=== PATIENT | female | born 1940 | race Caucasian/White ===

== ENCOUNTER 2017-02-27 05:21 | Inpatient (IN) | payer OTHER, MEDICARE ==
[2017-02-19 14:37] VITALS: BMI 39.0
--- NOTE | 2017-02-19 15:26 | PAT Medication Instructions ---
Service Date Feb 19, 2017. Current Home Medication List Acetaminophen (Acetaminophen ER), 1 TAB PO Q4 Alprazolam (Xanax *), 0.25 MG PO HS PRN Amiodarone Hcl (Cordarone), 200 MG PO DAILY Amlodipine (Norvasc), 10 MG PO QAM Aspirin Enteric Coated (Ecotrin Or Generic *), 81 MG PO QAM Cholecalciferol (Vitamin D), 4 TAB PO QPM Citalopram (Celexa *), 40 MG PO QAM Furosemide (Lasix), 40 MG PO BID Insulin Glargine (Toujeo Solostar), 15 SQ HS Isosorbide Mononitrate Ext Rel (Imdur Ext Rel), 120 MG PO QAM Metoprolol Succinate (Toprol Xl), 50 MG PO QAM Potassium Chloride (Potassium Chloride Er), 1 TAB PO BID Simvastatin (Zocor), 10 MG PO QPM Warfarin Sod (Coumadin), 1 TAB PO HS Medication Instructions For Your Scheduled Surgery - Advised by surgeon to hold: Aspirin Enteric Coated (Ecotrin Or Generic *), 81 MG PO QAM - Instructions per Coumadin clinic: Warfarin Sod (Coumadin), 1 TAB PO HS *To bridge with Lovenox* - Hold the following medications the morning of surgery: Potassium Chloride (Potassium Chloride Er), 1 TAB PO BID Furosemide (Lasix), 40 MG PO BID - Take the following medications the morning of surgery with a sip of water: Acetaminophen (Acetaminophen ER), 1 TAB PO Q4h PRN Amiodarone Hcl (Cordarone), 200 MG PO DAILY Amlodipine (Norvasc), 10 MG PO QAM Citalopram (Celexa *), 40 MG PO QAM Isosorbide Mononitrate Ext Rel (Imdur Ext Rel), 120 MG PO QAM Metoprolol Succinate (Toprol Xl), 50 MG PO QAM - Take the following medications as scheduled the night before surgery: Acetaminophen (Acetaminophen ER), 1 TAB PO Q4h PRN Potassium Chloride (Potassium Chloride Er), 1 TAB PO BID Simvastatin (Zocor), 10 MG PO QPM Alprazolam (Xanax *), 0.25 MG PO HS PRN Insulin Glargine (Toujeo Solostar), 15 SQ HS Cholecalciferol (Vitamin D), 4 TAB PO QPM Furosemide (Lasix), 40 MG PO BID If you have any questions please call us at [phone] or [phone] or [phone]
[2017-02-19 15:55] LABS: BASO % 0.7 %; BASO ABS # 0.05 K/uL (0-0.2); COMPLETE YES; EOS % 2.4 %; HEMATOCRIT 37.1 % (37-47); IG% 0.3 %; LYMPH % 10.1 %; LYMPH ABS # 0.72 K/uL (1.2-3.4); MEAN CELL VOLUME 91.6 fL (80-100); MEAN CORPUSCULAR HEMOGLOBIN 29.1 pg (25-34); MEAN CORPUSCULAR HGB CONC 31.8 g/dl (32-36); MEAN PLATELET VOLUME 10.3 fL (7.4-10.4); MONO % 10.5 %; PLATELET COUNT 191 K/uL (130-400); RED BLOOD COUNT 4.05 M/uL (4.2-5.4); WHITE BLOOD COUNT 7.16 K/uL (4.8-10.8)
[2017-02-19 16:06] LABS: URINE APPEARANCE CLOUDY (CLEAR); URINE BILIRUBIN NEG (NEG); URINE COLOR YELLOW; URINE NITRITE POS (NEG); URINE SPECIFIC GRAVITY 1.015 (1.000-1.030); UROBILINOGEN NEG (NEG)
[2017-02-19 16:09] LABS: MANUAL MICROSCOPIC REQUIRED? NO; REVIEW REQ? NO
[2017-02-19 16:16] LABS: BUN/CREATININE RATIO 14.2 (10-20); CALCIUM 8.6 mg/dl (8.5-10.1); POTASSIUM 4.6 mmol/L (3.5-5.1)
--- NOTE | 2017-02-21 10:43 | HISTORY & PHYSICAL EXAMINATION ---
DATE OF ADMISSION: 02/27/2017 CHIEF COMPLAINT: Back pain and bilateral leg pain and neurogenic claudication. HISTORY OF PRESENT ILLNESS: The patient is a 77-year-old female with a longstanding history of progressive back and leg pain, associated numbness, weakness and difficulty ambulating. 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 MRI shows severe spinal stenosis at L4-L5 and L5-S1 with facet degeneration and neural compression. She has failed to respond to conservative treatment and due to her marked discomfort she rates as 10/10 and limited functional status desires surgery. She has a complex cardiac history including history of MD, mitral valve regurgitation, atrial fibrillation. She was seen by cardiology for preoperative evaluation. Cardiology evaluation revealed a previous stenting in 2004 and 2006, chronic diastolic CHF. Preoperative transthoracic echocardiogram revealed ejection fraction of 57%, stress test revealed prior myocardial infarction. She was deemed to be stable from a cardiac standpoint. considered moderate cardiac risk. She was cleared to hold Coumadin preoperatively with bridging Lovenox. PAST MEDICAL HISTORY: Lymphedema, vitamin D deficiency, adenomatous polyps, adrenal nodule, anemia of chronic disease, kidney disease chronic stage IV, pulmonary hypertension, hypertension, history of TIA, osteopenia, dyslipidemia, type 2 diabetes, osteoarthritis, peripheral neuropathy, depression. PAST SURGICAL HISTORY: Total knee arthroplasty, colonoscopy, lumbar fusion, cholecystectomy, partial colectomy, hysterectomy. FAMILY HISTORY: Heart disease, cancer, diabetes and hypertension. SOCIAL HISTORY: The patient is a smoker, 14-mbxg-zana history. No alcohol use is reported. ALLERGIES: FLEXERIL AND TALWIN. MEDICATIONS: Coumadin which is to be held, metoprolol, Xanax, Lasix, potassium, simvastatin, insulin, citalopram, amiodarone, amlodipine, albuterol, fluticasone, aspirin, vitamin D, Vicodin. REVIEW OF SYSTEMS: The patient denies current or active chest pain. She has chronic shortness of breath. She has chronic overflow urinary incontinence. She denies fevers, chills or night sweats. PHYSICAL EXAMINATION: GENERAL: The patient is a pleasant elderly female who is obviously uncomfortable. She answers questions appropriately, has normal affect. She is alert and oriented x3. She stands slowly and ambulates with a stooped posture and compensated gait without martha ataxia and lumbar prominence. Inspection of the lumbar spine revealed midline scar, no martha tenderness or obvious scoliosis. CARDIOVASCULAR EXAMINATION: Reveals a regular rate at the time of auscultation of what appeared to be a regular rhythm. LUNGS: Clear to auscultation bilaterally. She had well preserved cervical range of motion, no prominent cervical lymphadenopathy. EXTREMITIES: Evaluation of the extremities revealed mild bilateral ankle edema, nonpitting, difficult to palpate distal pulses due to this. She had good cap refill. She had negative straight leg raise bilaterally. Nontender hip range of motion. She had 5/5 strength in motor function in dorsiflexion and plantarflexion bilaterally with absent DTRs at patellar. No clonus at the ankle. She reported intact sensation to light touch that was not normal, but diminished bilaterally with a stocking like fashion. IMAGING: Was reviewed as above. ASSESSMENT AND PLAN: The patient is an elderly female with multiple deformities who is of moderate cardiovascular risk for surgery and high medical risk. Despite these considerations she desires surgery due to her severe back and leg pain, ongoing neural compression and poor quality of life. She has achieved adequate pain control with oral medication. She understands the risk and desires to proceed. To address her symptoms, I recommend an L4-S1 decompression and fusion procedure with possible extension of cephalad hardware with removal of the cephalad hardware at L4-S1. She is agreeable to this. TEO
[~2017-02-27] VITALS: Ht 165.1 cm; Wt 106.4 kg
[2017-02-27] VITALS (11 sets, daily range): BP systolic 122–145; BP diastolic 61–77; PULSE 52–60; TEMP 36.4–36.6; O2SAT 91–98; Ht 165.1 cm; Wt 106.4 kg
[~2017-02-27 05:21] MED LIST: ACET650T9 PO; AMIO200T4 PO; AMLO-114 PO; ASPEC81 PO; CHOL100010 PO; CLX20 PO; CMD125 PO; FRS/40 PO; INSU1.2I SQ; ISOS60TA25 PO; METO-452 PO; POTA-74 PO; SIMV10TA2 PO; XNX25 PO
[2017-02-27] MEDS ORDERED: lovenox SQ (05:56)
[2017-02-27] MEDS ORDERED: CEFAZOLIN 2000 MG/60 ML D5W IV SCH (06:00)
[2017-02-27] MEDS ORDERED: SODIUM CHLORIDE 0.9% 1000ML IV SCH (06:00)
[2017-02-27] MEDS ORDERED: CeleBREX 200 MG CAP PO SCH (06:00)
[2017-02-27] MEDS ORDERED: PREGABALIN 75 MG CAP PO SCH (06:00)
[2017-02-27 06:08] LABS: INR 1.1 (0.9-1.1); PARTIAL THROMBOPLASTIN RATIO 1.1; PROTHROMBIN TIME (PATIENT) 11.6 SECONDS (9.0-12.0)
[2017-02-27] MEDS ORDERED: MIDAZOLAM HCL 1 MG/ML 2ML VIAL ONE (06:32)
[2017-02-27] MEDS ORDERED: FENTANYL CITRATE INJ 50 MCG/1 ML 2 ML VIAL ONE ×2 (06:32→07:59)
[2017-02-27] MEDS ORDERED: HEPARIN SOD (PORCINE) 1000 UNIT/ML 10 ML VIAL ONE (07:00)
[2017-02-27] MEDS ORDERED: BUPIVACAINE/EPINEPHRINE 0.5% MPF 1:200,000 30 ML VIAL ONE (07:00)
[2017-02-27] MEDS ORDERED: THROMBIN FOR SOLN 20000 UNIT KIT ONE (07:00)
[2017-02-27] MEDS ORDERED: THROMBIN 5000 UNITS KIT ONE (07:00)
[2017-02-27] MEDS ORDERED: BACITRACIN 50000 UNIT VIAL ONE (07:01)
--- NOTE | 2017-02-27 07:22 | History & Physical Bridge Note ---
H&P Re-Evaluation Bridge Note: I have examined the patient, reviewed the History & Physical and in the interval since the performance of the History & Physical I have noted the following changes of clinical significance: No changes noted
[2017-02-27] MEDS ORDERED: HYDROmorphone INJ 1 MG/ML SYR IV PRN ×2 (07:45→09:30)
[2017-02-27] MEDS ORDERED: EpHEDrine SULFATE INJ 50 MG/ML AMP IV PRN (07:45)
[2017-02-27] MEDS ORDERED: ONDANSETRON INJ 2 MG/ML 2 ML VIAL IV PRN ×2 (07:45→09:30)
[2017-02-27] MEDS ORDERED: ATROPINE SULFATE 0.1 MG/ML 5ML SYR IV PRN (07:45)
[2017-02-27] MEDS ORDERED: FENTANYL CITRATE INJ 50 MCG/1 ML 2 ML VIAL IV PRN (07:45)
[2017-02-27] MEDS ORDERED: HYDROmorphone INJ 2 MG/ML SYR/VIAL ONE (07:59)
--- NOTE | 2017-02-27 09:20 | [facility] Post Operative Brief Note ---
Immediate Operative Summary Operative Date Feb 27, 2017. Pre-Operative Diagnosis Back Pain, bilateral leg pain and Neurogenic Claudication Post-Operative Diagnosis Back Pain, bilateral leg pain and Neurogenic Claudication Procedure(s) Performed L4-S1 decomp/PSF, HWR L4 bilateral Surgeon Dr. Fernandez Assembler Flexible Leads Surgeon(s) Dale Stevenson Estimated Blood Loss 200cc Findings dict Specimens 0
[2017-02-27] MEDS ORDERED: FLOSEAL HEMOSTATIC MATRIX 10ML TOP ONE (09:22)
[2017-02-27] MEDS ORDERED: PROMETHAZINE HCL INJ 12.5 MG in SODIUM CHLORIDE 0.9% 50ML 50 ML IV PRN (09:30)
[2017-02-27] MEDS ORDERED: LORAZEPAM 0.5 MG TAB PO PRN (09:30)
[2017-02-27] MEDS ORDERED: NALOXONE HCL 0.4 MG/1 ML VIAL/CARP IV PRN (09:30)
[2017-02-27] MEDS ORDERED: SOD PHOSPHATE/SOD BIPHOSPHATE ENEMA 132 ML BTL PR PRN (09:30)
[2017-02-27] MEDS ORDERED: FAMOTIDINE 20 MG TAB PO PRN (09:30)
[2017-02-27] MEDS ORDERED: BISACODYL 10 MG SUPP PR PRN (09:30)
[2017-02-27] MEDS ORDERED: MAGNESIUM HYDROXIDE SUSP 30 ML UDC PO PRN (09:30)
[2017-02-27] MEDS ORDERED: LORAZEPAM INJ 0.5 MG in SYRINGE 0.75 ML IV PRN (09:30)
[2017-02-27] MEDS ORDERED: METOCLOPRAMIDE HCL INJ 5 MG/ML 2 ML VIAL IV PRN (09:30)
[2017-02-27] MEDS ORDERED: ALUMINUM/MAGNESIUM SUSP 30 ML UDC PO PRN (09:30)
--- NOTE | 2017-02-27 09:34 | DIAGNOSTIC IMAGING REPORT ---
Lumbar spine LUMBAR SPINE 2 OR 3 VIEW CLINICAL HISTORY: L2-L4 REMOVAL/ L4-S1 DECOMPRESSION/FUSION/INT ERT BODY TECHNIQUE: Image intensifier COMPARISON STUDY: None FINDINGS: Images demonstrate evidence for a low lumbar sacral laminectomy and fusion. 2 body alignment appears anatomic. IMPRESSION: Lumbar laminectomy and fusion Electronically signed by: Roberto Malloy M.D. 02/27/2017 9:33 AM Dictated Date/Time: 02/27/2017 9:30 AM
--- NOTE | 2017-02-27 10:32 | OPERATIVE REPORT ---
DATE OF OPERATION: 02/27/2017 PREOPERATIVE DIAGNOSES: 1. Previous L2-4 instrumented fusion. 2. Spinal stenosis L4-5 and L5-S1. 3. Severe lower extremity radiculopathy. SURGEON: Dr. Garcias. CARBON FURNACE OPERATOR: Dale Malik PA-C. Please note, he participated in all portions of the procedure and was critical for performance of the procedure, participated in positioning, prepping, draping, retraction and wound closure. ANESTHESIA: General endotracheal anesthesia. COMPLICATIONS: None. ESTIMATED BLOOD LOSS: 200 mL PROCEDURE: After identification of patient and operative level, she was brought to the OR where she underwent induction of general anesthesia. She was then positioned prone on Stan OR table with all bony prominences well padded. Care was taken to avoid pressure on the periorbital area. Lumbosacral area was sterilely prepped and draped in usual fashion. Antibiotics were administered. Time-out was performed. Level was confirmed. Skin incision was made from spinous process of L4 to the sacrum. Posterior exposure was accomplished at the tips of the transverse processes and Gelpi retractors were placed. Level was confirmed with identification of the hardware and fluoroscopy. I exposed the screws of L4 and then did a midline decompression with L4 and L5 laminectomies. I removed the medial facets with an osteotome and completed decompression with Kerrisons with wide foraminotomies as necessary. After completion of decompression, I palpated the nerve roots were decompressed bilaterally with [place] at L4, L5 and S1. I then applied FloSeal for hemostasis. Pedicle screws were placed bilaterally at L5 and S1 with K2M Palmer pedicle screws and position was checked with fluoroscopy. I then lowered the Aravind frame to restore lordosis and removed the L4 screws and then placed ramsey-to-ramsey connectors from L4 of the medicrea ramsey to the L4 K2M ramsey. I then inserted the ramsey with endcaps in to the screws of L5 and S1 and final tightened all endcaps as well as the connecters at L4. This was done bilaterally. I then decorticated the transverse process facets at L4-5 and L5-S1 with a high speed martin. I irrigated with bacitracin solution. Bone marrow aspirate taken from the right iliac crest and concentrated with stem cell concentration system and applied to bone graft paper bags sewing machine operator. I mixed this with local bone, was morselized and Infuse BMP on a collagen sponge, then packed the lateral gutters with a bone graft mixture as described above. I then confirmed hemostasis and closed in layered fashion over MITCHELL drain. All sponge and needle counts were correct at the end of the case. I attest to the content of the Intraoperative Record and any orders documented therein. Any exceptions are noted below. TEO
[2017-02-27] MEDS ORDERED: NEOSTIGMINE METHYLSULFATE 1 MG/ML 10ML VIAL ONE (10:35)
[2017-02-27] MEDS ORDERED: ROCURONIUM BROMIDE 10 MG/ML 5 ML VIAL ONE (10:35)
[2017-02-27] MEDS ORDERED: EpHEDrine SULFATE 50MG/5ML SYR ONE (10:35)
[2017-02-27] MEDS ORDERED: GLYCOPYRROLATE INJ 0.2 MG/ML VIAL ONE (10:35)
[2017-02-27] MEDS ORDERED: PROPOFOL IV EMULSION 10 MG/ML 20 ML VIAL IV ONE (10:35)
[2017-02-27] MEDS ORDERED: ONDANSETRON INJ 2 MG/ML 2 ML VIAL ONE (10:35)
[2017-02-27] MEDS ORDERED: LIDOCAINE HCL 2% 2 ML VIAL (20MG/ML) ONE (10:35)
[2017-02-27] MEDS ORDERED: DEXAMETHASONE SOD INJ 4 MG/ML VIAL ONE (10:35)
--- NOTE | 2017-02-27 10:47 | Anesthesiology Progress Note ---
Anesthesia Post Op Note Date & Time Feb 27, 2017 at 10:47 Vital Signs Pain Intensity: 0 Vital Signs Past 12 Hours Date Time Temp Pulse Resp B/P (MAP) Pulse Ox O2 Delivery O2 Flow Rate FiO2 02/27/17 10:39 53 14 02/27/17 10:39 54 14 93 02/27/17 10:36 143/62 02/27/17 10:34 54 12 02/27/17 10:34 54 12 90 02/27/17 10:31 144/55 02/27/17 10:30 36.3 68 93 161/58 93 Nasal Cannula 4 68 02/27/17 10:29 56 15 02/27/17 10:29 56 15 93 02/27/17 10:26 161/58 02/27/17 10:24 56 16 02/27/17 10:24 56 16 92 02/27/17 10:21 131/54 02/27/17 10:19 58 23 93 02/27/17 10:19 57 23 02/27/17 10:16 157/59 02/27/17 10:14 58 19 95 02/27/17 10:14 58 19 02/27/17 10:11 148/59 02/27/17 10:09 61 13 93 02/27/17 10:09 60 13 02/27/17 10:06 140/59 02/27/17 10:04 62 17 02/27/17 10:04 62 17 92 02/27/17 10:01 157/65 02/27/17 09:59 63 20 02/27/17 09:59 63 20 94 02/27/17 09:56 159/61 02/27/17 09:54 64 16 95 02/27/17 09:54 65 16 02/27/17 09:51 154/68 02/27/17 09:49 65 15 94 02/27/17 09:49 65 15 02/27/17 09:46 155/69 02/27/17 09:44 64 18 93 02/27/17 09:44 64 18 02/27/17 09:41 145/80 02/27/17 09:39 63 23 93 02/27/17 09:39 63 23 02/27/17 09:36 143/60 02/27/17 09:35 138/57 02/27/17 09:34 63 22 90 02/27/17 09:34 36.2 63 16 138/57 94 Mask 10 02/27/17 09:34 63 22 02/27/17 05:57 36.6 60 20 145/62 94 Room Air Notes Mental Status: alert / awake / arousable, participated in evaluation Pt Amnestic to Procedure: Yes Nausea / Vomiting: adequately controlled Pain: adequately controlled Airway Patency, RR, SpO2: stable & adequate BP & HR: stable & adequate Hydration State: stable & adequate Anesthetic Complications: no major complications apparent
[2017-02-27] MEDS ORDERED: GLUCOSE 10 TABS/TUBE PO PRN (11:30)
[2017-02-27] MEDS ORDERED: DEXTROSE 50% 50 ML SYR IV PRN (11:30)
[2017-02-27] MEDS ORDERED: GLUCAGON FOR INJ 1 MG VIAL SQ PRN (11:30)
[2017-02-27] MEDS ORDERED: GLUCOSE 40% GEL 15 GM TUBE PO PRN (11:30)
[2017-02-27] MEDS: SODIUM CHLORIDE 0.9% 1000ML 1,000 ML IV SCH (11:32)
[2017-02-27] MEDS ORDERED: CMD25 PO (12:05)
[2017-02-27] MEDS ORDERED: ALBUTEROL HFA 8 GM INHALER INH PRN (12:30)
[2017-02-27] MEDS ORDERED: ALPRAZOLAM 0.25 MG TAB PO PRN (12:30)
[2017-02-27] MEDS ORDERED: ALBUTEROL 0.5% NEB SOLN 2.5 MG/0.5 ML VIAL INH PRN (12:30)
--- NOTE | 2017-02-27 12:32 | Medical Consult ---
Consultation Date of Consultation: Feb 27, 2017. Attending Physician: Josias Garcias M.D. Reason for Consultation: postop medical management History of Present Illness Patient seen and examined after undergoing L4-S1 decompression/ fusion today by Dr. Garcias. Patient reports feeling tired but otherwise no complaints. No postop pain yet. Has not eaten yet but feels hungry. Last BM was yesterday. Hit head on cabinet yesterday while doing dishes so has bruising on forehead. Recently treated for UTI with Bactrim changed to Cipro by nephro with improvement of urinary symptoms. Denies dizziness, headache, chest pain, palpitations, SOB, N/V, numbness/ tingling, weakness. No hx of VTE. Past Medical/Surgical History Medical Problems: (1) Anemia in chronic renal disease Status: Chronic (2) CAD (coronary artery disease) Status: Chronic (3) CKD (chronic kidney disease), stage IV Status: Chronic (4) Colon cancer Permanent Comment: s/p resection and chemo Status: Chronic (5) Depression with anxiety Status: Chronic (6) Diabetic polyneuropathy Status: Chronic (7) Diastolic CHF, chronic Status: Chronic (8) DM type 2 (diabetes mellitus, type 2) Status: Chronic (9) Dyslipidemia Status: Chronic (10) HTN (hypertension) Status: Chronic (11) Lymphedema Status: Chronic (12) Mitral regurgitation Status: Chronic (13) Obesity (BMI 30-39.9) Status: Chronic (14) ROMMEL (obstructive sleep apnea) Permanent Comment: on nocturnal O2 Status: Chronic (15) Osteopenia Status: Chronic (16) PAF (paroxysmal atrial fibrillation) Permanent Comment: on Coumadin Status: Chronic (17) Pulmonary HTN Status: Chronic (18) TIA (transient ischemic attack) Status: Chronic (19) Vitamin D deficiency Status: Chronic Surgical Problems: (1) History of hysterectomy Status: Chronic (2) History of lumbar surgery Status: Chronic (3) S/P coronary artery stent placement Status: Chronic (4) S/P partial colectomy Status: Chronic Family History Diabetes mellitus MOTHER BROTHER FH: CAD (coronary artery disease) FATHER MOTHER Social History Smoking Status: Current Every Day Smoker (1 ppd. counselled about cessation.) Alcohol Use: none Housing Status: lives with family (son lives with her but not involved with her care) Allergies Coded Allergies: Vancomycin (Verified Allergy, Intermediate, RASH/HIVES/ITCHINESS ( [id number] ADMISSION) -COMMENT-, 02/27/17) PT RECEIVED 413ML (~1900MG) OF VANCO 2300MG/500ML. INFUSION WAS STOPPED INITIALLY FOR ITCHINESS AND PT RECEIVED 50MG PO BENADRYL X 1 WITH RELIEF. INFUSION WAS RE-STARTED AT 200ML/HR AND PT COMPLAINED OF ITCHINESS. VERBAL ORDER FROM DR SHELLEY TO D/C VANC AND BENADRYL 25MG PO Q4 HR ORDERED. MAY CONSIDER USING VANCO IN FUTURE IF NECESSARY, BUT WOULD RECOMMEND PRE-TREATING WITH ANTIHISTAMINE/CORTICOSTEROID, MAX DILUTING VANCO, AND STARTING RATE AT 0.5ML/MIN (30ML/HR) AND TITRATING TO MAX TOLERABLE RATE. Pentazocine (Verified Allergy, Unknown, 02/27/17) Sulfa Antibiotics (Verified Adverse Reaction, Unknown, NERVOUSNESS, ) Home Medications Active Reported Coumadin (Warfarin Sod) 2.5 Mg Tab 1.25 Mg PO DAILY [lovenox] SQ BID Cordarone (Amiodarone Hcl) 200 Mg Tab 200 Mg PO DAILY Acetaminophen ER (Acetaminophen) 650 Mg Tab 1 Tab PO Q4 Vitamin D (Cholecalciferol) 1,000 Unit Tab 8,000 Units PO DAILY Potassium Chloride Er (Potassium Chloride) 10 Meq Tab 2 Tab PO DAILY 90 Days Toprol Xl (Metoprolol Succinate) 50 Mg Tab 50 Mg PO QAM Toujeo Solostar (Insulin Glargine) 300 Unit/Ml Inj 15 SQ HS Ecotrin Or Generic * (Aspirin) 81 Mg Ectab 81 Mg PO QAM pt reports received instructions for pre op - stopping on february 21 (this will be day of last dose) Celexa * (Citalopram Hydrobromide) 20 Mg Tab 40 Mg PO QAM Zocor (Simvastatin) 10 Mg Tab 10 Mg PO DAILY Imdur Ext Rel (Isosorbide Mononitrate) 60 Mg Ertab 120 Mg PO QAM Lasix (Furosemide) 40 Mg Tab 40 Mg PO BID Xanax * (Alprazolam) 0.25 Mg Tab 0.25 Mg PO HS PRN Norvasc (Amlodipine Besylate) 10 Mg Tab 10 Mg PO QAM Current Inpatient Medications Current Inpatient Medications Medications (Trade) Dose Ordered Sig/Sanna Route Start Time Stop Time Status Last Admin Dose Admin Cefazolin Sodium 60 ml @ 100 mls/hr PREOP IV 02/27/17 06:00 02/27/17 18:00 02/27/17 07:29 100 MLS/HR Sodium Chloride 1,000 ml @ 15 mls/hr Q24H IV 02/27/17 06:00 02/27/17 18:00 02/27/17 06:24 15 MLS/HR Celecoxib (CeleBREX CAP) 200 mg PREOP PO 02/27/17 06:00 02/27/17 18:00 02/27/17 06:19 200 MG Pregabalin (Lyrica Cap) 75 mg PREOP PO 02/27/17 06:00 02/27/17 18:00 02/27/17 06:19 75 MG Fentanyl Citrate (Fentanyl Inj) 25 mcg Q5M PRN IV 02/27/17 07:45 02/27/17 12:45 Hydromorphone HCl (Dilaudid Inj) 0.25 mg Q5M PRN IV 02/27/17 07:45 02/27/17 12:45 Ondansetron HCl (Zofran Inj) 4 mg ONE PRN IV 02/27/17 07:45 02/27/17 12:45 Ephedrine Sulfate (EpHEDrine SULFATE INJ) 5 mg Q5M PRN IV 02/27/17 07:45 02/27/17 12:45 Atropine Sulfate (Atropine Sulfate 0.1MG/Ml Inj) 0.5 mg Q1M PRN IV 02/27/17 07:45 02/27/17 12:45 Amiodarone HCl (Cordarone Tab) 200 mg DAILY PO 02/28/17 09:00 03/30/17 08:59 Amlodipine Besylate (Norvasc Tab) 10 mg QAM PO 02/28/17 09:00 03/30/17 08:59 Aspirin (Ecotrin Tab) 81 mg QAM PO 02/28/17 09:00 03/30/17 08:59 Citalopram Hydrobromide (celeXA TAB) 40 mg QAM PO 02/28/17 09:00 03/30/17 08:59 Isosorbide Mononitrate (Imdur Ext Rel Tab) 120 mg QAM PO 02/28/17 09:00 03/30/17 08:59 Metoprolol Succinate (Toprol Xl Tab) 50 mg QAM PO 02/28/17 09:00 03/30/17 08:59 Simvastatin (Zocor Tab) 10 mg QPM PO 02/27/17 21:00 03/29/17 20:59 Promethazine HCl 12.5 mg/Sodium Chloride 50.5 ml @ 202 mls/hr Q6H PRN IV 02/27/17 09:30 03/29/17 09:29 Ondansetron HCl (Zofran Inj) 4 mg Q6H PRN IV 02/27/17 09:30 03/29/17 09:29 Metoclopramide HCl (Reglan Inj) 10 mg Q6H PRN IV 02/27/17 09:30 03/29/17 09:29 Lorazepam (Ativan Tab) 0.5 mg Q8H PRN PO 02/27/17 09:30 03/29/17 09:29 Lorazepam 0.5 mg/ Syringe 1 ml @ 1 mls/min Q8H PRN IV 02/27/17 09:30 03/29/17 09:29 Sodium Chloride 1,000 ml @ 50 mls/hr Q20H IV 02/27/17 09:20 03/30/17 07:00 02/27/17 11:32 75 MLS/HR Polyethylene (Miralax Powder Packet) 17 gm Q6 PO 03/01/17 06:00 03/31/17 05:59 Bisacodyl (Dulcolax Supp) 10 mg DAILY PRN DC 02/27/17 09:30 03/29/17 09:29 Magnesium Hydroxide (Milk Of Magnesia Susp) 30 ml DAILY PRN PO 02/27/17 09:30 03/29/17 09:29 Hydromorphone HCl (Dilaudid Inj) 0.5-1mg prn moder... Q3H PRN IV 02/27/17 09:30 03/13/17 09:29 Oxycodone HCl (Roxicodone Immediate Rel Tab) 5-10mg prn moderate to sev... Q4H PRN PO 02/27/17 11:27 03/13/17 11:26 Cefazolin Sodium 2000 mg/Dextrose 60 ml @ 100 mls/hr Q8H IV 02/27/17 16:00 02/28/17 00:35 Acetaminophen (Tylenol Tab) 1,000 mg Q8H PRN PO 02/27/17 09:30 03/29/17 09:29 Naloxone HCl (Narcan Inj) 0.1 mg Q5M PRN IV 02/27/17 09:30 03/29/17 09:29 Senna/Docusate Sodium (Senokot S Tab) 2 tab HS PO 02/27/17 21:00 03/29/17 20:59 Sodium Biphosphate/ Sodium Phosphate (Fleet Enema) 132 ml ONE PRN DC 02/27/17 09:30 03/29/17 09:29 Al Hydroxide/Mg Hydroxide (Maalox Susp) 30 ml Q6H PRN PO 02/27/17 09:30 03/29/17 09:29 Famotidine (Pepcid Tab) 20 mg Q12 PRN PO 02/27/17 09:30 03/29/17 09:29 Insulin Aspart (novoLOG ASPART) SLIDING SCALE If C... ACHS SC 02/27/17 12:00 03/29/17 11:59 Glucose (Glucose 40% Gel) 15-30 GRAMS 15 GRAMS... UD PRN PO 02/27/17 11:30 03/29/17 11:29 Glucose (Glucose Chew Tab) 4-8 Tablets 4 Tabl... UD PRN PO 02/27/17 11:30 03/29/17 11:29 Dextrose (Dextrose 50% 50ML Syringe) 25-50ML OF 50% DW IV FOR... UD PRN IV 02/27/17 11:30 03/29/17 11:29 Glucagon (Glucagon Inj) 1 mg UD PRN SQ 02/27/17 11:30 03/29/17 11:29 Insulin Glargine (Lantus Solostar Pen) 15 unit HS SC 02/27/17 21:00 03/29/17 20:59 UNV Furosemide (Lasix Tab) 40 mg BID PO 02/28/17 09:00 03/29/17 16:59 UNV Review of Systems Ten systems reviewed and negative except as noted in HPI. Physical Exam Date Time Temp Pulse Resp B/P (MAP) Pulse Ox O2 Delivery O2 Flow Rate FiO2 02/27/17 11:26 93 Nasal Cannula 4.0 02/27/17 11:25 36.4 54 16 135/70 (91) 93 Nasal Cannula 4.0 02/27/17 11:20 54 18 138/65 (89) 92 02/27/17 11:13 93 Nasal Cannula 4.0 02/27/17 10:39 53 14 02/27/17 10:39 54 14 93 02/27/17 10:36 143/62 02/27/17 10:34 54 12 02/27/17 10:34 54 12 90 02/27/17 10:31 144/55 02/27/17 10:30 36.3 68 93 161/58 93 Nasal Cannula 4 68 02/27/17 10:29 56 15 02/27/17 10:29 56 15 93 02/27/17 10:26 161/58 02/27/17 10:24 56 16 02/27/17 10:24 56 16 92 02/27/17 10:21 131/54 02/27/17 10:19 58 23 93 02/27/17 10:19 57 23 02/27/17 10:16 157/59 02/27/17 10:14 58 19 95 02/27/17 10:14 58 19 02/27/17 10:11 148/59 02/27/17 10:09 61 13 93 02/27/17 10:09 60 13 02/27/17 10:06 140/59 02/27/17 10:04 62 17 02/27/17 10:04 62 17 92 02/27/17 10:01 157/65 02/27/17 09:59 63 20 02/27/17 09:59 63 20 94 02/27/17 09:56 159/61 02/27/17 09:54 64 16 95 02/27/17 09:54 65 16 02/27/17 09:51 154/68 02/27/17 09:49 65 15 94 02/27/17 09:49 65 15 02/27/17 09:46 155/69 02/27/17 09:44 64 18 93 02/27/17 09:44 64 18 02/27/17 09:41 145/80 02/27/17 09:39 63 23 93 02/27/17 09:39 63 23 02/27/17 09:36 143/60 02/27/17 09:35 138/57 02/27/17 09:34 63 22 90 02/27/17 09:34 36.2 63 16 138/57 94 Mask 10 02/27/17 09:34 63 22 02/27/17 05:57 36.6 60 20 145/62 94 Room Air General Appearance: no apparent distress, + obese, + pertinent finding ( pleasant alert elderly female, lying in bed no distress, sister and 2 nieces at bedside) Head: normocephalic, + pertinent finding (ecchymosis on forehead) Eyes: normal inspection, PERRL, sclerae normal ENT: pharynx normal, + pertinent finding (mildly hard of hearing) Neck: supple Respiratory/Chest: lungs clear, normal breath sounds, no respiratory distress, no accessory muscle use Cardiovascular: regular rate, rhythm, + systolic murmur Abdomen/GI: normal bowel sounds, non tender, soft Back: + pertinent finding (s/p lumbar surgery. dressing in place. drain in place with sanguinous drainage. ) Extremities/Musculoskelatal: no calf tenderness, + pertinent finding (SCD's in place) Neurologic/Psych: alert, normal mood/affect, oriented x 3, + pertinent finding (sensation to light touch grossly intact bilateral feet. ankle flexion/ extension grossly intact bilaterally) Skin: warm/dry, + pertinent finding (ecchymosis on forehead) Laboratory Results Last 24 Hours Test 02/27/17 05:43 02/27/17 05:44 02/27/17 09:36 Bedside Glucose 111 mg/dl 138 mg/dl Prothrombin Time 11.6 SECONDS Prothromb Time International Ratio 1.1 Activated Partial Thromboplast Time 27.5 SECONDS Partial Thromboplastin Ratio 1.1 Assessment & Plan S/P L4-S1 DECOMPRESSION/ FUSION POD #[address] Garcias Pain control, activity, wound care per ortho Monitor daily H/H for sign of acute blood loss anemia Incentive spirometry PT/ OT PAROXYSMAL AFIB Currently in regular sounding rhythm, rate controlled Continue amiodarone and metoprolol Coumadin held for surgery- resume when acceptable by ortho CHRONIC DIASTOLIC CHF/ LYMPHEDEMA Currently euvolemic On Lasix 40 mg BID at home IVF's decreased to 50 mL/hour and d/c in am Resume Lasix in AM DM TYPE 2 Continue glargine 15 units HS Novolog sliding scale coverage Monitor BSG AC HS CKD STAGE IV Creat is 2.0, stable from baseline 2.0 -2.2 Monitor renal function Avoid nephrotoxins CAD S/P STENT Stable, no anginal symptoms Continue aspirin, statin, Imdur, metoprolol HYPERTENSION BP stable, continue amlodipine, metoprolol, Imdur ROMMEL/ NOCTURNAL HYPOXEMIA Not on CPAP Continue home oxygen 2 liters NC HS and PRN DEPRESSION/ ANXIETY Continue Celexa and PRN Xanax DVT PROPHYLAXIS Per ortho DISPOSITION Per ortho Patient seen in collaboration with Dr. Montejo. Please see his addendum. Agree with above consult bnote. 77f s/p back surgery. tolerated procedure fine. No pain. No fevers. No nausea. resting comfortably. p/e Ge alert and awake.. 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 hx of diastolic chf/ ckd satge 4/lymphedema on gentle fluids to restart lasix in am monitor for volume overload.
[2017-02-27] MEDS ORDERED: ALBU0.633 NEB (12:44)
[2017-02-27] MEDS ORDERED: FLUT115A INH (12:44)
[2017-02-27] MEDS ORDERED: VNTHFA/IN INH (12:44)
[2017-02-27] MEDS ORDERED: SPRIN/30 INH (12:44)
[2017-02-27] MEDS: INSULIN ASPART 100 UNITS/ML 3 ML PEN SC SCH ×3 (13:11→21:25)
[2017-02-27] MEDS: CEFAZOLIN IV 2,000 MG in DEXTROSE 5% 50ML 50 ML IV SCH (16:32)
[2017-02-27] MEDS ORDERED: FUROSEMIDE 40 MG TAB PO SCH (17:00)
[2017-02-27] MEDS: INSULIN GLARGINE SOLOSTAR 100 UNITS/ML 3 ML PEN SC SCH (21:26)
[2017-02-27] MEDS: SIMVASTATIN 10 MG TAB PO SCH (21:27)
[2017-02-27] MEDS: DOCUSATE SODIUM/SENNA 50/8.6MG TAB PO SCH (21:27)
[2017-02-28] VITALS (8 sets, daily range): BP systolic 114–150; BP diastolic 61–71; PULSE 59–84; TEMP 36.4–36.9; O2SAT 91–97
[2017-02-28] MEDS: CEFAZOLIN IV 2,000 MG in DEXTROSE 5% 50ML 50 ML IV SCH (00:32)
[2017-02-28] MEDS: SODIUM CHLORIDE 0.9% 1000ML 1,000 ML IV SCH (00:32)
[2017-02-28] MEDS ORDERED: DC PCA SCH (06:00)
[2017-02-28 06:38] LABS: COMPLETE YES; HEMATOCRIT 29.3 % (37-47); IG% 0.2 %; LYMPH % 3.1 %; LYMPH ABS # 0.39 K/uL (1.2-3.4); MEAN CELL VOLUME 91.8 fL (80-100); MEAN CORPUSCULAR HEMOGLOBIN 29.5 pg (25-34); MEAN CORPUSCULAR HGB CONC 32.1 g/dl (32-36); MEAN PLATELET VOLUME 10.2 fL (7.4-10.4); MONO % 6.4 %; NEUT % 90.3 %; PLATELET COUNT 158 K/uL (130-400); RED BLOOD COUNT 3.19 M/uL (4.2-5.4); WHITE BLOOD COUNT 12.49 K/uL (4.8-10.8)
[2017-02-28 07:18] LABS: BUN/CREATININE RATIO 10.6 (10-20); CALCIUM 7.7 mg/dl (8.5-10.1); CREATININE 2.6 mg/dl (0.60-1.20); POTASSIUM 4.1 mmol/L (3.5-5.1)
--- NOTE | 2017-02-28 08:20 | Anesthesiology Progress Note ---
Anesthesia Post Op Note Date & Time Feb 28, 2017 at 08:20 Vital Signs Pain Intensity: 0.0 Vital Signs Past 12 Hours Date Time Temp Pulse Resp B/P (MAP) Pulse Ox O2 Delivery O2 Flow Rate FiO2 02/28/17 07:15 Room Air 02/28/17 07:12 36.5 61 17 133/69 (90) 91 Room Air 02/28/17 03:21 36.4 59 16 150/61 (90) 95 Room Air 02/28/17 00:15 Room Air 02/27/17 23:00 36.4 56 16 136/71 (92) 91 Room Air Notes Mental Status: alert / awake / arousable, participated in evaluation Pt Amnestic to Procedure: Yes Nausea / Vomiting: adequately controlled Pain: adequately controlled Airway Patency, RR, SpO2: stable & adequate BP & HR: stable & adequate Hydration State: stable & adequate Anesthetic Complications: no major complications apparent
[2017-02-28] MEDS: TIOTROPIUM BROMIDE 5 PUFF/90 MCG INH INH SCH (09:00)
[2017-02-28] MEDS: CITALOPRAM 20 MG TAB PO SCH (09:11)
[2017-02-28] MEDS: ASPIRIN 81 MG ECTAB PO SCH (09:11)
[2017-02-28] MEDS: POTASSIUM CHLORIDE 10 MEQ TABCR PO SCH (09:12)
[2017-02-28] MEDS: FUROSEMIDE 40 MG TAB PO SCH ×2 (09:13→16:58)
[2017-02-28] MEDS: CHOLECALCIFEROL 1000 INTER.UNIT TAB PO SCH (09:13)
[2017-02-28] MEDS: INSULIN ASPART 100 UNITS/ML 3 ML PEN SC SCH ×4 (09:15→21:00)
[2017-02-28] MEDS: AMLODIPINE BESYLATE 5 MG TAB PO SCH (09:20)
[2017-02-28] MEDS: ISOSORBIDE MONONITRATE 60 MG TABCR PO SCH (09:21)
[2017-02-28] MEDS: METOPROLOL SUCC 50MG EXT REL TAB PO SCH (09:21)
[2017-02-28] MEDS: AMIODARONE 200 MG TAB PO SCH (09:21)
[2017-02-28] MEDS ORDERED: NURSING VERBAL MED ORDER ONE (09:45)
[2017-02-28] MEDS ORDERED: SODIUM CHLORIDE 0.9% 1000ML 1,000 ML IV SCH (16:30)
[2017-02-28] MEDS: SIMVASTATIN 10 MG TAB PO SCH (21:08)
[2017-02-28] MEDS: DOCUSATE SODIUM/SENNA 50/8.6MG TAB PO SCH (21:08)
[2017-02-28] MEDS: ACETAMINOPHEN 500 MG TAB PO PRN (21:09)
[2017-02-28] MEDS: INSULIN GLARGINE SOLOSTAR 100 UNITS/ML 3 ML PEN SC SCH (21:11)
--- NOTE | 2017-02-28 21:19 | Progress Note ---
Medicine Progress Note Date & Time of Visit: Feb 28, 2017 at 15:30 . Subjective Doing well postoperatively. No chest pain. No cough or dyspnea. No nausea or vomiting. Fairchild cath removed this afternoon. Postop pain well-controlled. . Objective Last 8 Hrs Date Time Temp Pulse Resp B/P (MAP) Pulse Ox O2 Delivery O2 Flow Rate FiO2 02/28/17 15:01 36.6 62 20 145/71 (95) 97 Nasal Cannula 2.0 02/28/17 11:11 36.7 84 19 114/61 (78) 96 Nasal Cannula 2.0 02/28/17 09:19 64 121/62 (81) Physical Exam: General- no distress Neck- no JVD Lungs- clear to auscultation Heart- regular, III/ systolic murmur at base Abdomen- bowel sounds, soft, nontender Extremities- trace pretibial edema; TEDS applied Neuro- alert, oriented . Laboratory Results: Last 24 Hours Test 02/27/17 16:57 02/27/17 20:42 02/28/17 06:22 02/28/17 08:02 Bedside Glucose 226 mg/dl 208 mg/dl 159 mg/dl White Blood Count 12.49 K/uL Red Blood Count 3.19 M/uL Hemoglobin 9.4 g/dL Hematocrit 29.3 % Mean Corpuscular Volume 91.8 fL Mean Corpuscular Hemoglobin 29.5 pg Mean Corpuscular Hemoglobin Concent 32.1 g/dl Platelet Count 158 K/uL Mean Platelet Volume 10.2 fL Neutrophils (%) (Auto) 90.3 % Lymphocytes (%) (Auto) 3.1 % Monocytes (%) (Auto) 6.4 % Eosinophils (%) (Auto) 0.0 % Basophils (%) (Auto) 0.0 % Neutrophils # (Auto) 11.27 K/uL Lymphocytes # (Auto) 0.39 K/uL Monocytes # (Auto) 0.80 K/uL Eosinophils # (Auto) 0.00 K/uL Basophils # (Auto) 0.00 K/uL RDW Standard Deviation 47.7 fL RDW Coefficient of Variation 14.3 % Immature Granulocyte % (Auto) 0.2 % Immature Granulocyte # (Auto) 0.03 K/uL Sodium Level 138 mmol/L Potassium Level 4.1 mmol/L Chloride Level 103 mmol/L Carbon Dioxide Level 28 mmol/L Anion Gap 7.0 mmol/L Blood Urea Nitrogen 27 mg/dl Creatinine 2.60 mg/dl Est Creatinine Clear Calc Drug Dose 21.3 ml/min Estimated GFR () 19.5 Estimated GFR (Non- 16.9 BUN/Creatinine Ratio 10.6 Random Glucose 155 mg/dl Calcium Level 7.7 mg/dl Test 02/28/17 12:02 Bedside Glucose 147 mg/dl Assessment & Plan S/P LUMBAR SURGERY - REMOVAL OF HARDWARE, DECOMPRESSION Doing well postoperatively. CKD / MADYSON Chronic kidney disease stage IV with baseline creatinine around 2. Serum creatinine today 2.6. May be volume depleted from being nothing by mouth for surgery. Hold furosemide. IV NSS x 1 L. Avoid NSAID's if possible as well as other potential nephrotoxins. ANEMIA Hgb 11.8 --> 9.4. Acute blood loss anemia due to surgery. LEUKOCYTOSIS Probably secondary to dexamethasone. No apparent infection. Follow. CORONARY ARTERY DISEASE No anginal symptoms. Continue aspirin, metoprolol, amlodipine, nitrates, statin. CHRONIC DIASTOLIC CHF History of chronic left ventricular diastolic heart failure. Appears to be compensated. Holding furosemide due to acute kidney injury. Follow. HISTORY PAROXYSMAL ATRIAL FIBRILLATION Continue amiodarone and metoprolol. Resume warfarin when OK from surgical perspective. HYPERTENSION Hemodynamically stable postoperatively. Continue metoprolol, amlodipine, nitrates. SLEEP APNEA Continue nocturnal O2. DIABETES MELLITUS TYPE 2 Fasting blood sugar this morning = 159. Lantus + NovoLog per protocol. VTE PROPHYLAXIS Per Ortho. Resume warfarin when OK from surgical perspective. Thank you for this consultation. We will follow the patient with you during their hospital stay. You can reach a member of the [facility] Hospitalist Team 09/04 via pager @ [phone]. You can reach me via cell @ [phone]. . Current Inpatient Medications: Current Inpatient Medications Medications (Trade) Dose Ordered Sig/Sanna Route Start Time Stop Time Status Last Admin Dose Admin Amiodarone HCl (Cordarone Tab) 200 mg DAILY PO 02/28/17 09:00 03/30/17 08:59 02/28/17 09:21 200 MG Amlodipine Besylate (Norvasc Tab) 10 mg QAM PO 02/28/17 09:00 03/30/17 08:59 02/28/17 09:20 10 MG Aspirin (Ecotrin Tab) 81 mg QAM PO 02/28/17 09:00 03/30/17 08:59 02/28/17 09:11 81 MG Citalopram Hydrobromide (celeXA TAB) 40 mg QAM PO 02/28/17 09:00 03/30/17 08:59 02/28/17 09:11 40 MG Isosorbide Mononitrate (Imdur Ext Rel Tab) 120 mg QAM PO 02/28/17 09:00 03/30/17 08:59 02/28/17 09:21 120 MG Metoprolol Succinate (Toprol Xl Tab) 50 mg QAM PO 02/28/17 09:00 03/30/17 08:59 02/28/17 09:21 50 MG Simvastatin (Zocor Tab) 10 mg QPM PO 02/27/17 21:00 03/29/17 20:59 02/27/17 21:27 10 MG Promethazine HCl 12.5 mg/Sodium Chloride 50.5 ml @ 202 mls/hr Q6H PRN IV 02/27/17 09:30 03/29/17 09:29 Ondansetron HCl (Zofran Inj) 4 mg Q6H PRN IV 02/27/17 09:30 03/29/17 09:29 Metoclopramide HCl (Reglan Inj) 10 mg Q6H PRN IV 02/27/17 09:30 03/29/17 09:29 Lorazepam (Ativan Tab) 0.5 mg Q8H PRN PO 02/27/17 09:30 03/29/17 09:29 Lorazepam 0.5 mg/ Syringe 1 ml @ 1 mls/min Q8H PRN IV 02/27/17 09:30 03/29/17 09:29 Polyethylene (Miralax Powder Packet) 17 gm Q6 PO 03/01/17 06:00 03/31/17 05:59 Bisacodyl (Dulcolax Supp) 10 mg DAILY PRN SC 02/27/17 09:30 03/29/17 09:29 Magnesium Hydroxide (Milk Of Magnesia Susp) 30 ml DAILY PRN PO 02/27/17 09:30 03/29/17 09:29 Hydromorphone HCl (Dilaudid Inj) 0.5-1mg prn moder... Q3H PRN IV 02/27/17 09:30 03/13/17 09:29 Oxycodone HCl (Roxicodone Immediate Rel Tab) 5-10mg prn moderate to sev... Q4H PRN PO 02/27/17 11:27 03/13/17 11:26 Acetaminophen (Tylenol Tab) 1,000 mg Q8H PRN PO 02/27/17 09:30 03/29/17 09:29 Naloxone HCl (Narcan Inj) 0.1 mg Q5M PRN IV 02/27/17 09:30 03/29/17 09:29 Senna/Docusate Sodium (Senokot S Tab) 2 tab HS PO 02/27/17 21:00 03/29/17 20:59 02/27/17 21:27 2 TAB Sodium Biphosphate/ Sodium Phosphate (Fleet Enema) 132 ml ONE PRN SC 02/27/17 09:30 03/29/17 09:29 Al Hydroxide/Mg Hydroxide (Maalox Susp) 30 ml Q6H PRN PO 02/27/17 09:30 03/29/17 09:29 Famotidine (Pepcid Tab) 20 mg Q12 PRN PO 02/27/17 09:30 03/29/17 09:29 Insulin Aspart (novoLOG ASPART) SLIDING SCALE If C... ACHS SC 02/27/17 12:00 03/29/17 11:59 02/28/17 12:53 7 UNITS Glucose (Glucose 40% Gel) 15-30 GRAMS 15 GRAMS... UD PRN PO 02/27/17 11:30 03/29/17 11:29 Glucose (Glucose Chew Tab) 4-8 Tablets 4 Tabl... UD PRN PO 02/27/17 11:30 03/29/17 11:29 Dextrose (Dextrose 50% 50ML Syringe) 25-50ML OF 50% DW IV FOR... UD PRN IV 02/27/17 11:30 03/29/17 11:29 Glucagon (Glucagon Inj) 1 mg UD PRN SQ 02/27/17 11:30 03/29/17 11:29 Insulin Glargine (Lantus Solostar Pen) 15 unit HS SC 02/27/17 21:00 03/29/17 20:59 02/27/17 21:26 15 UNIT Furosemide (Lasix Tab) 40 mg BID17 PO 02/28/17 09:00 03/30/17 08:59 02/28/17 09:13 40 MG Cholecalciferol (Vitamin D Tab) 8,000 inter.unit DAILY PO 02/28/17 09:00 03/30/17 08:59 02/28/17 09:13 8,000 INTER.UNIT Potassium Chloride (Klor-Con M10) 20 meq DAILY PO 02/28/17 09:00 03/30/17 08:59 02/28/17 09:12 20 MEQ Alprazolam (Xanax Tab) 0.25 mg HS PRN PO 02/27/17 12:30 03/29/17 12:29 Albuterol (Ventolin Hfa Inhaler) 2 puffs Q6H PRN INH 02/27/17 12:30 03/29/17 12:29 Tiotropium Gentry (Spiriva Handihaler Inhaler) 1 puff DAILY INH 02/28/17 09:00 03/30/17 08:59 Miscellaneous Information (Order Awaiting Action) 1 ea QS N/A 02/27/17 16:00 03/29/17 15:59 Albuterol Sulfate (Ventolin 0.5% 2.5MG/0.5ML Neb) 2.5 mg Q4 PRN INH 02/27/17 12:30 03/29/17 12:29
[2017-03-01] MEDS: POLYETHYLENE (MIRALAX) 17 GM PACK PO SCH ×4 (05:49→23:52)
[2017-03-01 06:42] LABS: BUN/CREATININE RATIO 12.9 (10-20); CALCIUM 7.5 mg/dl (8.5-10.1); CREATININE 2.7 mg/dl (0.60-1.20); POTASSIUM 4.1 mmol/L (3.5-5.1)
[2017-03-01 07:08] VITALS: BP 122/55; PULSE 59; TEMP 36.7; O2SAT 96
[2017-03-01] MEDS: CHOLECALCIFEROL 1000 INTER.UNIT TAB PO SCH (09:08)
[2017-03-01] MEDS: CITALOPRAM 20 MG TAB PO SCH (09:10)
[2017-03-01] MEDS: AMLODIPINE BESYLATE 5 MG TAB PO SCH (09:10)
[2017-03-01] MEDS: ASPIRIN 81 MG ECTAB PO SCH (09:10)
[2017-03-01] MEDS: ISOSORBIDE MONONITRATE 60 MG TABCR PO SCH (09:10)
[2017-03-01] MEDS: AMIODARONE 200 MG TAB PO SCH (09:11)
[2017-03-01] MEDS: FUROSEMIDE 40 MG TAB PO SCH ×2 (09:12→16:59)
[2017-03-01] MEDS: POTASSIUM CHLORIDE 10 MEQ TABCR PO SCH (09:12)
[2017-03-01 09:15] VITALS: BP 127/74; PULSE 65
[2017-03-01] MEDS: INSULIN ASPART 100 UNITS/ML 3 ML PEN SC SCH ×4 (09:17→21:00)
[2017-03-01] MEDS: TIOTROPIUM BROMIDE 5 PUFF/90 MCG INH INH SCH (09:18)
[2017-03-01] MEDS: METOPROLOL SUCC 50MG EXT REL TAB PO SCH (09:22)
--- NOTE | 2017-03-01 11:32 | DIAGNOSTIC IMAGING REPORT ---
CHEST 2 VIEWS ROUTINE HISTORY: Short of breath. COMPARISON: Chest 01/22/2012. FINDINGS: No focal lung consolidations to suggest pneumonia. No evidence for pulmonary edema. The cardiac silhouette is mildly enlarged. No pleural effusions. No pneumothorax. Cholecystectomy. Lumbar spinal fusion hardware. IMPRESSION: Mild cardiomegaly. Electronically signed by: Armando Campos M.D. 03/01/2017 11:31 AM Dictated Date/Time: 03/01/2017 11:28 AM
[2017-03-01] MEDS ORDERED: RXC5 PO (11:38)
--- NOTE | 2017-03-01 11:38 | Orthopedic Progress Note ---
Orthopedic Progress Note Date of Service Mar 01, 2017. Subjective Post OP Day: 2 Reports: feeling well, pain controlled w PO medications, Denies: complaints, chest pain, SOB, nausea / vomiting, light headedness, calf pain, using DIRECTOR MOBILE Objective calves soft nontender, N/V intact, dressing C/D/I, A&O x3, hemovac drainage Date Time Temp Pulse Resp B/P (MAP) Pulse Ox O2 Delivery O2 Flow Rate FiO2 03/01/17 09:15 65 127/74 (91) 03/01/17 08:00 Nasal Cannula 2.0 03/01/17 07:08 36.7 59 16 122/55 (77) 96 Nasal Cannula 2.0 02/28/17 23:09 36.5 62 16 137/61 (86) 95 Nasal Cannula 2.0 02/28/17 19:50 Nasal Cannula 2.0 02/28/17 19:30 36.9 64 20 145/69 (94) 96 Nasal Cannula 2.0 02/28/17 16:59 60 131/69 (89) 02/28/17 15:01 36.6 62 20 145/71 (95) 97 Nasal Cannula 2.0 Laboratory Results 24 Hours: Test 03/01/17 11:29 Assessment & Plan Assessment: stable Plan: Cr elevated-IVF, hold lasix per IM...pain controlled...await rehab bed...restart coumadin at d/c...check h/h Discharge Planning Discharge Planning: rehab hospital Pain Management: Oxy IR DVT Prophylaxis: SCDs Therapy: Physical Therapy, Occupational Therapy
--- NOTE | 2017-03-01 11:39 | Discharge Instructions ---
Discharge Instructions Date of Service Mar 01, 2017. Admission Reason for Admission: Lumbar Spinal Stenosis Discharge Discharge Diagnosis / Problem: same Discharge Goals Goal(s): Decrease discomfort Activity Recommendations Activity Limitations: per Instructions/Follow-up section . Instructions / Follow-Up Instructions / Follow-Up ACTIVITY RECOMMENDATIONS: SELF CARE INSTRUCTIONS AFTER THORACIC/LUMBAR FUSIONS 1. You may walk to your tolerance. It is good exercise for your legs and back. Expect some back and intermittent leg aches and pains. 2. You may perform "counter-top" level activities (make a sandwich, shannan with a project, etc.). 3. No bending or lifting of more than 10 pounds or back twisting of any nature (roll like a log when turning in bed). 4. You may ride in a car for 20-30 minutes at a time. No driving until after your first visit with your doctor. 5. Frequent changes of position and restricting sitting to 30 minutes at a time will help limit the amount of back spasms and stiffness you may experience. 6. You may discontinue the use of ambulatory aids (cane, crutches, etc.) once your strength and confidence allow. 7. You may rapier insertion loom fixer the shower and let water strike your incision when you arrive home at least once daily. Do not take a tub bath, sit in a hot tub or go into a swimming pool until after your first recheck in the office. SPECIAL CARE INSTRUCTIONS: VERY IMPORTANT TO READ AND REVIEW A. Your surgical incision has been closed with a cosmetic suture under the skin that will dissolve in about 6 weeks. In 14 days, you can use a pair of clean scissors and cut the suture that is left outside of the skin at the ends of your incision. 1. The small skin tapes can be removed 7 days after surgery if they have not fallen off by that point. 2. You may keep the wound open to air as much as possible to promote healing after post-op day number 5 unless told otherwise by your doctor. 3. If you think the wound looks like it is becoming infected (redness or worsening drainage) and/or you are experiencing fever, chill or worsening back pain and muscle spasms, contact the office so that we may evaluate you as soon as possible. B. Complications are uncommon, but please contact us if you have any signs or symptoms of: 1. wound infection (fever higher than 102.5 degrees F, redness, separation of wound, drainage, or increasing pain from the incision) 2. blood clots in legs (pain, swelling, redness and warmth in legs) 3. urinary tract infection (fever higher than 102.5 degrees F, burning upon urination or increased frequency of urination) 4. nerve problems (inability to walk on your toes or heels, numbness, loss of bowel or bladder control) 5. any other symptoms that concern you C. Please call the office at if you have any concerns or questions about your operation or recovery. D. No smoking! Smoking drastically decreases the chance of a solid fusion. E. Do not take any anti-inflammatory medications (Indocin, Advil, Motrin, Aspirin, Naprosyn, etc.) as these may inhibit the chance of a solid fusion. Tylenol is okay to take for pain. MANAGING PAIN AFTER SPINAL SURGERY 1. Narcotic medication is intended for short-term use and will be provided for surgical pain. Surgical pain usually lasts for a period of 4-6 weeks. Narcotic medication includes Percocet, Vicodin, Darvocet, Tylenol #3 or Lortab. 2. Longer-term pain is more appropriately treated with non-narcotic medication such as Tylenol ES. 3. Muscle spasm is not appropriately treated with narcotics. Muscle relaxers such as Soma, Flexeril or Skelaxin can be used along with Tylenol ES. 4. Remember that we all live with some "aches and pains". This is not unusual or uncommon after an injury or as we get older. a. Back pain is expected and may include muscle spasms for 4 to 6 weeks after surgery. The pain should gradually improve. If the pain worsens for no apparent reason, please contact the office. b. Intermittent leg pain may also be experienced and should not be concerned about unless it worsens for no apparent reason. If so, please contact the office. 5. We will provide appropriate medication within the normal guidelines of their prescribed use. We will also be very cautious and aware of potential abuse and extended duration of patients' medication needs. a. Pain medications are for your comfort and to assist with sleep and rest so that the tissue can heal. They are not provided in order to return to normal activity and should not be used through the day. To do so or worsening pain at night can result from ongoing tissue damage and development of tolerance to the prescribed medicine. 6. Please allow 2-3 days to process refills. Prescriptions will not be mailed but must be picked up at the office. FOLLOW UP VISIT: Keep your scheduled follow-up appointment. Any questions, please call the office at . Current Hospital Diet Patient's current hospital diet: Diabetes Type 2 Diet Discharge Diet Recommended Diet: Diabetes Type 2 Diet Procedures Procedures Performed: L4 Hardware Removal, L4-S1 Decompression and Instrumented Fusion; Infuse; Application of Arteriocyte Pending Studies Studies pending at discharge: no Medical Emergencies . Who to Call and When: Medical Emergencies: If at any time you feel your situation is an emergency, please call 911 immediately. . Non-Emergent Contact Non-Emergency issues call your: Surgeon . "Provider Documentation" section prepared by Josias Garcias. . VTE Core Measure Inpt VTE Proph given/why not?: SCD's [place] Drug Monitoring Program Search Results: patient reviewed within database, no issues identified
[2017-03-01 11:54] LABS: HEMATOCRIT 29.5 % (37-47)
[2017-03-01] MEDS ORDERED: SODIUM CHLORIDE 0.9% 1000ML 1,000 ML IV SCH (12:00)
[2017-03-01 12:41] LABS: URINE APPEARANCE CLEAR (CLEAR); URINE BILIRUBIN NEG (NEG); URINE COLOR YELLOW; URINE EPITHELIAL CELL AUTO >30 /lpf (0-5); URINE NITRITE NEG (NEG); URINE SPECIFIC GRAVITY 1.015 (1.000-1.030); UROBILINOGEN NEG (NEG); ZZUR CULT IF INDIC CLEAN CATCH YES
[2017-03-01 12:50] LABS: MANUAL MICROSCOPIC REQUIRED? NO; REVIEW REQ? YES
--- NOTE | 2017-03-01 13:00 | Nephrology Consultation ---
Nephrology Consultation Date of Consultation: Mar 01, 2017. Attending Physician: Dr Fernandez Requesting Physician: Dr Cedeño Reason for Consultation: MADYSON on CKD 4 History of Present Illness 77 year old female w/ CKD 4 admitted for elective L4-S1 decompression surgery done 02/27. Her most recent creatinine in 2017 runs 2.0-2.2; follows w/ my partner in CKD clinic most recently 02/21. Her creatinine was 2.0 on 02/19 preop labs > had 3 days of bactrim for concern for UTI based on these; she was changed to cipro by renal on 02/21 and was on this at admission. her creatinine was 2.6 on 02/28; 2.7 today despite gentle IV fluids. Wheezing noted today and CXR pending. no documented F or BP extremes since admission. She had one celebrex tablet. She takes lasix 40 mg 2 tabs daily as outpt and this was resumed yesterday am. Past Medical/Surgical History -DM > 30 years -CKD 4, follows w/ Dr. Vyas; attributed to DM/HTN; he notes at 02/21 OV that her creatinine in past has fluctuated widely due in part to volume status -CAD -chronic diastolic HF -PAF -anemia of ckd -plm HTN on supplemental 02 -OA -lumbar stenosis -HTN -class 2 obesity -chronic lymphedema -chronically inflamed urine/ bacteriuria versus recurrent ut[facility]/ + urine cx < E coli, proteus, occasional Klebisella Family History Diabetes mellitus MOTHER BROTHER FH: CAD (coronary artery disease) FATHER MOTHER Social History Smoking Status: Current Every Day Smoker (1 ppd. counselled about cessation.) Housing Status: lives with family (son lives with her but not involved with her care) Allergies Coded Allergies: Vancomycin (Verified Allergy, Intermediate, RASH/HIVES/ITCHINESS ( [id number] ADMISSION) -COMMENT-, 02/27/17) PT RECEIVED 413ML (~1900MG) OF VANCO 2300MG/500ML. INFUSION WAS STOPPED INITIALLY FOR ITCHINESS AND PT RECEIVED 50MG PO BENADRYL X 1 WITH RELIEF. INFUSION WAS RE-STARTED AT 200ML/HR AND PT COMPLAINED OF ITCHINESS. VERBAL ORDER FROM DR SHELLEY TO D/C VANC AND BENADRYL 25MG PO Q4 HR ORDERED. MAY CONSIDER USING VANCO IN FUTURE IF NECESSARY, BUT WOULD RECOMMEND PRE-TREATING WITH ANTIHISTAMINE/CORTICOSTEROID, MAX DILUTING VANCO, AND STARTING RATE AT 0.5ML/MIN (30ML/HR) AND TITRATING TO MAX TOLERABLE RATE. Pentazocine (Verified Allergy, Unknown, 02/27/17) Sulfa Antibiotics (Verified Adverse Reaction, Unknown, NERVOUSNESS, ) Medications Current Inpatient Medications Medications (Trade) Dose Ordered Sig/Sanna Route Start Time Stop Time Status Last Admin Dose Admin Amiodarone HCl (Cordarone Tab) 200 mg DAILY PO 02/28/17 09:00 03/30/17 08:59 03/01/17 09:11 200 MG Amlodipine Besylate (Norvasc Tab) 10 mg QAM PO 02/28/17 09:00 03/30/17 08:59 03/01/17 09:10 10 MG Aspirin (Ecotrin Tab) 81 mg QAM PO 02/28/17 09:00 03/30/17 08:59 03/01/17 09:10 81 MG Citalopram Hydrobromide (celeXA TAB) 40 mg QAM PO 02/28/17 09:00 03/30/17 08:59 03/01/17 09:10 40 MG Isosorbide Mononitrate (Imdur Ext Rel Tab) 120 mg QAM PO 02/28/17 09:00 03/30/17 08:59 03/01/17 09:10 120 MG Metoprolol Succinate (Toprol Xl Tab) 50 mg QAM PO 02/28/17 09:00 03/30/17 08:59 03/01/17 09:22 50 MG Simvastatin (Zocor Tab) 10 mg QPM PO 02/27/17 21:00 03/29/17 20:59 02/28/17 21:08 10 MG Promethazine HCl 12.5 mg/Sodium Chloride 50.5 ml @ 202 mls/hr Q6H PRN IV 02/27/17 09:30 03/29/17 09:29 Ondansetron HCl (Zofran Inj) 4 mg Q6H PRN IV 02/27/17 09:30 03/29/17 09:29 Metoclopramide HCl (Reglan Inj) 10 mg Q6H PRN IV 02/27/17 09:30 03/29/17 09:29 Lorazepam (Ativan Tab) 0.5 mg Q8H PRN PO 02/27/17 09:30 03/29/17 09:29 Lorazepam 0.5 mg/ Syringe 1 ml @ 1 mls/min Q8H PRN IV 02/27/17 09:30 03/29/17 09:29 Polyethylene (Miralax Powder Packet) 17 gm Q6 PO 03/01/17 06:00 03/31/17 05:59 03/01/17 05:49 17 GM Bisacodyl (Dulcolax Supp) 10 mg DAILY PRN [place] 02/27/17 09:30 03/29/17 09:29 Magnesium Hydroxide (Milk Of Magnesia Susp) 30 ml DAILY PRN PO 02/27/17 09:30 03/29/17 09:29 Hydromorphone HCl (Dilaudid Inj) 0.5-1mg prn moder... Q3H PRN IV 02/27/17 09:30 03/13/17 09:29 Oxycodone HCl (Roxicodone Immediate Rel Tab) 5-10mg prn moderate to sev... Q4H PRN PO 02/27/17 11:27 03/13/17 11:26 Acetaminophen (Tylenol Tab) 1,000 mg Q8H PRN PO 02/27/17 09:30 03/29/17 09:29 02/28/17 21:09 1,000 MG Naloxone HCl (Narcan Inj) 0.1 mg Q5M PRN IV 02/27/17 09:30 03/29/17 09:29 Senna/Docusate Sodium (Senokot S Tab) 2 tab HS PO 02/27/17 21:00 03/29/17 20:59 02/28/17 21:08 2 TAB Sodium Biphosphate/ Sodium Phosphate (Fleet Enema) 132 ml ONE PRN FL 02/27/17 09:30 03/29/17 09:29 Al Hydroxide/Mg Hydroxide (Maalox Susp) 30 ml Q6H PRN PO 02/27/17 09:30 03/29/17 09:29 Famotidine (Pepcid Tab) 20 mg Q12 PRN PO 02/27/17 09:30 03/29/17 09:29 Insulin Aspart (novoLOG ASPART) SLIDING SCALE If C... ACHS SC 02/27/17 12:00 03/29/17 11:59 03/01/17 09:17 3 UNITS Glucose (Glucose 40% Gel) 15-30 GRAMS 15 GRAMS... UD PRN PO 02/27/17 11:30 03/29/17 11:29 Glucose (Glucose Chew Tab) 4-8 Tablets 4 Tabl... UD PRN PO 02/27/17 11:30 03/29/17 11:29 Dextrose (Dextrose 50% 50ML Syringe) 25-50ML OF 50% DW IV FOR... UD PRN IV 02/27/17 11:30 03/29/17 11:29 Glucagon (Glucagon Inj) 1 mg UD PRN SQ 02/27/17 11:30 03/29/17 11:29 Insulin Glargine (Lantus Solostar Pen) 15 unit HS SC 02/27/17 21:00 03/29/17 20:59 02/28/17 21:11 15 UNIT Furosemide (Lasix Tab) 40 mg BID17 PO 02/28/17 09:00 03/30/17 08:59 03/01/17 09:12 40 MG Cholecalciferol (Vitamin D Tab) 8,000 inter.unit DAILY PO 02/28/17 09:00 03/30/17 08:59 03/01/17 09:08 8,000 INTER.UNIT Potassium Chloride (Klor-Con M10) 20 meq DAILY PO 02/28/17 09:00 03/30/17 08:59 03/01/17 09:12 20 MEQ Alprazolam (Xanax Tab) 0.25 mg HS PRN PO 02/27/17 12:30 03/29/17 12:29 Albuterol (Ventolin Hfa Inhaler) 2 puffs Q6H PRN INH 02/27/17 12:30 03/29/17 12:29 Tiotropium [place] (Spiriva Handihaler Inhaler) 1 puff DAILY INH 02/28/17 09:00 03/30/17 08:59 03/01/17 09:18 1 PUFF Miscellaneous Information (Order Awaiting Action) 1 ea QS N/A 02/27/17 16:00 03/29/17 15:59 Albuterol Sulfate (Ventolin 0.5% 2.5MG/0.5ML Neb) 2.5 mg Q4 PRN INH 02/27/17 12:30 03/29/17 12:29 Home Meds and Scripts Medications Dose Route/Sig Max Daily Dose Days Date Category Dose Instructions Ventolin Hfa (Albuterol) 200 Puffs/36805 Mcg Aers 2 Puffs INH Q6H PRN 02/27/17 Rx Albuterol Sulfate 0.63 Mg/3 Ml Neb 1 Vial NEB Q4H PRN 12 02/27/17 Rx Advair Hfa 115/21 Mcg (Fluticasone-Salmeterol 115/21 Mcg) 1 Aer Aer 1 Puff INH BID 02/27/17 Rx Spiriva Handihaler (Tiotropium [place]) 30 Puff/540 Mcg Aerp 1 Cap INH DAILY 30 02/27/17 Rx Coumadin (Warfarin Sod) 2.5 Mg Tab 1.25 Mg PO DAILY 02/27/17 Reported [lovenox] SQ BID 02/27/17 Reported Cordarone (Amiodarone Hcl) 200 Mg Tab 200 Mg PO DAILY 02/19/17 Reported Acetaminophen ER (Acetaminophen) 650 Mg Tab 1 Tab PO Q4 02/19/17 Reported Vitamin D (Cholecalciferol) 1,000 Unit Tab 8,000 Units PO DAILY 02/19/17 Reported Potassium Chloride Er (Potassium Chloride) 10 Meq Tab 2 Tab PO DAILY 90 02/19/17 Reported Toprol Xl (Metoprolol Succinate) 50 Mg Tab 50 Mg PO QAM 02/19/17 Reported [place]jeo Solostar (Insulin Glargine) 300 Unit/Ml Inj 15 SQ HS 02/19/17 Reported Ecotrin Or Generic * (Aspirin) 81 Mg Ectab 81 Mg PO QAM 01/22/12 Reported pt reports received instructions for pre op - stopping on february 21 (this will be day of last dose) Celexa * (Citalopram Hydrobromide) 20 Mg Tab 40 Mg PO QAM 02/03/10 Reported Zocor (Simvastatin) 10 Mg Tab 10 Mg PO DAILY 02/03/10 Reported Imdur Ext Rel (Isosorbide Mononitrate) 60 Mg Ertab 120 Mg PO QAM 02/03/10 Reported Lasix (Furosemide) 40 Mg Tab 40 Mg PO BID 02/03/10 Reported Xanax * (Alprazolam) 0.25 Mg Tab 0.25 Mg PO HS PRN 01/08/07 Reported Norvasc (Amlodipine Besylate) 10 Mg Tab 10 Mg PO QAM 01/08/07 Reported Review of Systems Constitutional: + fatigue, No weakness Eyes: No worsening of vision ENT: No hearing loss Respiratory: + dyspnea on exertion (stable chronic; got out of bed today w/o issue), No cough Cardiac: + edema (controlled), No chest pain, No palpitations Abdomen: No pain, No nausea, No vomiting, No diarrhea Musculoskeletal: + problem reported (some soreness after OR but back pain/ sciatica much improved), No joint pain, No muscle pain Female : No dysuria, No urinary frequency, No hematuria Neuro: + weakness, No memory loss Psych: No depression symptoms, No anxiety Heme: No abnormal bleeding/bruising Endo: + fatigue Skin: No rash, No itch Physical Exam Date Time Temp Pulse Resp B/P (MAP) Pulse Ox O2 Delivery O2 Flow Rate FiO2 03/01/17 09:15 65 127/74 (91) 03/01/17 08:00 Nasal Cannula 2.0 03/01/17 07:08 36.7 59 16 122/55 (77) 96 Nasal Cannula 2.0 02/28/17 23:09 36.5 62 16 137/61 (86) 95 Nasal Cannula 2.0 02/28/17 19:50 Nasal Cannula 2.0 02/28/17 19:30 36.9 64 20 145/69 (94) 96 Nasal Cannula 2.0 02/28/17 16:59 60 131/69 (89) 02/28/17 15:01 36.6 62 20 145/71 (95) 97 Nasal Cannula 2.0 02/28/17 11:11 36.7 84 19 114/61 (78) 96 Nasal Cannula 2.0 General Appearance: WD/WN, no apparent distress, + obese (on 02NC) Eyes: EOMI ENT: hearing grossly normal Neck: supple Respiratory/Chest: no respiratory distress, + decreased breath sounds, + wheezing (scattered insp/exp) Cardiovascular: regular rate, rhythm Abdomen: normal bowel sounds, non tender, soft (no cash), + pertinent finding (L post spinal bandage/drain) Extremities: + pedal edema (minimal) Neurologic/Psych: alert, normal mood/affect, oriented x 3 Skin: no jaundice, warm/dry, no rash Diagnostics Last 24 Hours Test 02/28/17 12:02 02/28/17 16:59 02/28/17 20:57 03/01/17 05:45 Bedside Glucose 147 mg/dl 106 mg/dl 120 mg/dl Sodium Level 139 mmol/L Potassium Level 4.1 mmol/L Chloride Level 104 mmol/L Carbon Dioxide Level 29 mmol/L Anion Gap 6.0 mmol/L Blood Urea Nitrogen 35 mg/dl Creatinine 2.70 mg/dl Est Creatinine Clear Calc Drug Dose 20.5 ml/min Estimated GFR () 18.7 Estimated GFR (Non- 16.1 BUN/Creatinine Ratio 12.9 Random Glucose 96 mg/dl Calcium Level 7.5 mg/dl Test 03/01/17 08:06 Bedside Glucose 124 mg/dl Diagnostic Radiology: cxr today > no pneumonia or pulm edema Assessment & Plan 77 y/o F w/ CKD 4 baseline creatinine of 2 over the past 2 years but has in past had widely fluctuating values 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 Recently on bactrim then cipro for uti/positive urine cx. On outpt lasix dose. She had perioperative cefazolin in house but no other abtx. MADYSON on CKD 4 w/ widely variable baseline creatinine per outpt notes (though 2017 values stable at 2.0 pretty much) in setting of chronic bacteriuria/ complicated UTI and chronic DHF/volume overload w/ pulm HTN -f/u pending CXR>> no evidence of pneumonia or pulm edema -ordered UACM w/ cx prn>> will not be surprised if urine cx positive as we have never in outpt setting over past year cleared her urine of bacteria on testing but important to check status now -strict I/O -daily bmp -cont lasix for now current dose -would let her take po fluid ad isabel but carefully track intake > needs at least 1.2 L fluid intake daily po or IV -maximize respiratory therapy for copd/bronchitis Appreciate consult; will follow with you.
[2017-03-01 15:30] VITALS: BP 129/60; PULSE 62; TEMP 36.6; O2SAT 98
[2017-03-01] MEDS: OXYCODONE HCL IR 5 MG TAB (IMMEDIATE RELEASE) PO PRN (17:05)
--- NOTE | 2017-03-01 20:38 | Progress Note ---
Medicine Progress Note Date & Time of Visit: Mar 01, 2017 at 09:19 . Subjective No fever. Noted to be wheezing this morning, patient states that is not unusual for her. Denies shortness of breath. No anginal or pleuritic chest pain. No nausea or vomiting. No BM yet. [place] catheter removed yesterday, voiding without difficulty. Pain fairly well controlled. . Objective Last 8 Hrs Date Time Temp Pulse Resp B/P (MAP) Pulse Ox O2 Delivery O2 Flow Rate FiO2 03/01/17 08:00 Nasal Cannula 2.0 03/01/17 07:08 36.7 59 16 122/55 (77) 96 Nasal Cannula 2.0 Physical Exam: General- no distress Neck- + JVD Lungs- diffuse wheezing, no respiratory distress Heart- regular, III/ systolic murmur at base Abdomen- bowel sounds, soft, nontender Extremities- trace pretibial edema; TEDS applied Neuro- alert, oriented . Laboratory Results: Last 24 Hours Test 02/28/17 12:02 02/28/17 16:59 02/28/17 20:57 03/01/17 05:45 Bedside Glucose 147 mg/dl 106 mg/dl 120 mg/dl Sodium Level 139 mmol/L Potassium Level 4.1 mmol/L Chloride Level 104 mmol/L Carbon Dioxide Level 29 mmol/L Anion Gap 6.0 mmol/L Blood Urea Nitrogen 35 mg/dl Creatinine 2.70 mg/dl Est Creatinine Clear Calc Drug Dose 20.5 ml/min Estimated GFR () 18.7 Estimated GFR (Non- 16.1 BUN/Creatinine Ratio 12.9 Random Glucose 96 mg/dl Calcium Level 7.5 mg/dl Test 03/01/17 08:06 Bedside Glucose 124 mg/dl Assessment & Plan S/P LUMBAR SURGERY - REMOVAL OF HARDWARE, DECOMPRESSION Doing well postoperatively. CKD / MADYSON Chronic kidney disease stage IV with baseline creatinine around 2. Creatinine 2.6 yesterday. Received 1 L NSS. Serum creatinine today 2.7. No CHF on today's chest x-ray, so additional L of NSS ordered. Will ask Nephrology Team to follow with us. Avoid NSAID's if possible as well as other potential nephrotoxins. ANEMIA Hgb 11.8 --> 9.4 --> 9.0. Acute blood loss anemia due to surgery. LEUKOCYTOSIS Probably secondary to dexamethasone. No apparent infection. CORONARY ARTERY DISEASE No anginal symptoms. Continue aspirin, metoprolol, amlodipine, nitrates, statin. CHRONIC DIASTOLIC CHF History of chronic left ventricular diastolic heart failure. Appears to be compensated. Today's chest x-ray showed mild cardiomegaly, no pulmonary vascular congestion. Follow. HISTORY PAROXYSMAL ATRIAL FIBRILLATION Continue amiodarone and metoprolol. Resume warfarin when OK from surgical perspective. HYPERTENSION Hemodynamically stable postoperatively. Continue metoprolol, amlodipine, nitrates. SLEEP APNEA Continue nocturnal O2. DIABETES MELLITUS TYPE 2 Fasting blood sugar this morning = 124. Lantus + NovoLog per protocol. VTE PROPHYLAXIS Per Ortho. Resume warfarin when OK from surgical perspective. Thank you for this consultation. We will follow the patient with you during their hospital stay. You can reach a member of the [facility] Hospitalist Team 09/04 via pager @ . You can reach me via cell @ [phone]. . Current Inpatient Medications: Current Inpatient Medications Medications (Trade) Dose Ordered Sig/Sanna Route Start Time Stop Time Status Last Admin Dose Admin Amiodarone HCl (Cordarone Tab) 200 mg DAILY PO 02/28/17 09:00 03/30/17 08:59 02/28/17 09:21 200 MG Amlodipine Besylate (Norvasc Tab) 10 mg QAM PO 02/28/17 09:00 03/30/17 08:59 02/28/17 09:20 10 MG Aspirin (Ecotrin Tab) 81 mg QAM PO 02/28/17 09:00 03/30/17 08:59 02/28/17 09:11 81 MG Citalopram Hydrobromide (celeXA TAB) 40 mg QAM PO 02/28/17 09:00 03/30/17 08:59 02/28/17 09:11 40 MG Isosorbide Mononitrate (Imdur Ext Rel Tab) 120 mg QAM PO 02/28/17 09:00 03/30/17 08:59 02/28/17 09:21 120 MG Metoprolol Succinate (Toprol Xl Tab) 50 mg QAM PO 02/28/17 09:00 03/30/17 08:59 02/28/17 09:21 50 MG Simvastatin (Zocor Tab) 10 mg QPM PO 02/27/17 21:00 03/29/17 20:59 02/28/17 21:08 10 MG Promethazine HCl 12.5 mg/Sodium Chloride 50.5 ml @ 202 mls/hr Q6H PRN IV 02/27/17 09:30 03/29/17 09:29 Ondansetron HCl (Zofran Inj) 4 mg Q6H PRN IV 02/27/17 09:30 03/29/17 09:29 Metoclopramide HCl (Reglan Inj) 10 mg Q6H PRN IV 02/27/17 09:30 03/29/17 09:29 Lorazepam (Ativan Tab) 0.5 mg Q8H PRN PO 02/27/17 09:30 03/29/17 09:29 Lorazepam 0.5 mg/ Syringe 1 ml @ 1 mls/min Q8H PRN IV 02/27/17 09:30 03/29/17 09:29 Polyethylene (Miralax Powder Packet) 17 gm Q6 PO 03/01/17 06:00 03/31/17 05:59 03/01/17 05:49 17 GM Bisacodyl (Dulcolax Supp) 10 mg DAILY PRN [place] 02/27/17 09:30 03/29/17 09:29 Magnesium Hydroxide (Milk Of Magnesia Susp) 30 ml DAILY PRN PO 02/27/17 09:30 03/29/17 09:29 Hydromorphone HCl (Dilaudid Inj) 0.5-1mg prn moder... Q3H PRN IV 02/27/17 09:30 03/13/17 09:29 Oxycodone HCl (Roxicodone Immediate Rel Tab) 5-10mg prn moderate to sev... Q4H PRN PO 02/27/17 11:27 03/13/17 11:26 Acetaminophen (Tylenol Tab) 1,000 mg Q8H PRN PO 02/27/17 09:30 03/29/17 09:29 02/28/17 21:09 1,000 MG Naloxone HCl (Narcan Inj) 0.1 mg Q5M PRN IV 02/27/17 09:30 03/29/17 09:29 Senna/Docusate Sodium (Senokot S Tab) 2 tab HS PO 6/13/17 21:00 03/29/17 20:59 02/28/17 21:08 2 TAB Sodium Biphosphate/ Sodium Phosphate (Fleet Enema) 132 ml ONE PRN [place] 02/27/17 09:30 03/29/17 09:29 Al Hydroxide/Mg Hydroxide (Maalox Susp) 30 ml Q6H PRN PO 02/27/17 09:30 03/29/17 09:29 Famotidine (Pepcid Tab) 20 mg Q12 PRN PO 02/27/17 09:30 03/29/17 09:29 Insulin Aspart (novoLOG ASPART) SLIDING SCALE If C... ACHS SC 02/27/17 12:00 03/29/17 11:59 02/28/17 18:07 5 UNITS Glucose (Glucose 40% Gel) 15-30 GRAMS 15 GRAMS... UD PRN PO 02/27/17 11:30 03/29/17 11:29 Glucose (Glucose Chew Tab) 4-8 Tablets 4 Tabl... UD PRN PO 02/27/17 11:30 03/29/17 11:29 Dextrose (Dextrose 50% 50ML Syringe) 25-50ML OF 50% DW IV FOR... UD PRN IV 02/27/17 11:30 03/29/17 11:29 Glucagon (Glucagon Inj) 1 mg UD PRN SQ 02/27/17 11:30 03/29/17 11:29 Insulin Glargine (Lantus Solostar Pen) 15 unit HS SC 02/27/17 21:00 03/29/17 20:59 02/28/17 21:11 15 UNIT Furosemide (Lasix Tab) 40 mg BID17 PO 02/28/17 09:00 03/30/17 08:59 02/28/17 16:58 40 MG Cholecalciferol (Vitamin D Tab) 8,000 inter.unit DAILY PO 02/28/17 09:00 03/30/17 08:59 02/28/17 09:13 8,000 INTER.UNIT Potassium Chloride (Klor-Con M10) 20 meq DAILY PO 02/28/17 09:00 03/30/17 08:59 02/28/17 09:12 20 MEQ Alprazolam (Xanax Tab) 0.25 mg HS PRN PO 02/27/17 12:30 03/29/17 12:29 Albuterol (Ventolin Hfa Inhaler) 2 puffs Q6H PRN INH 02/27/17 12:30 03/29/17 12:29 Tiotropium [place] (Spiriva Handihaler Inhaler) 1 puff DAILY INH 02/28/17 09:00 03/30/17 08:59 Miscellaneous Information (Order Awaiting Action) 1 ea QS N/A 02/27/17 16:00 03/29/17 15:59 Albuterol Sulfate (Ventolin 0.5% 2.5MG/0.5ML Neb) 2.5 mg Q4 PRN INH 02/27/17 12:30 03/29/17 12:29
[2017-03-01] MEDS: DOCUSATE SODIUM/SENNA 50/8.6MG TAB PO SCH (21:11)
[2017-03-01] MEDS: SIMVASTATIN 10 MG TAB PO SCH (21:11)
[2017-03-01] MEDS: INSULIN GLARGINE SOLOSTAR 100 UNITS/ML 3 ML PEN SC SCH (21:12)
[2017-03-01 23:07] VITALS: BP 135/64; PULSE 72; TEMP 36.3; O2SAT 96
[2017-03-02] MEDS: POLYETHYLENE (MIRALAX) 17 GM PACK PO SCH ×4 (06:04→23:34)
[2017-03-02 07:10] VITALS: BP 137/75; PULSE 67; TEMP 36.7; O2SAT 96
[2017-03-02 07:55] VITALS: O2SAT 96
[2017-03-02] MEDS: ACETAMINOPHEN 500 MG TAB PO PRN (08:37)
[2017-03-02] MEDS: AMLODIPINE BESYLATE 5 MG TAB PO SCH (08:38)
[2017-03-02] MEDS: ISOSORBIDE MONONITRATE 60 MG TABCR PO SCH (08:38)
[2017-03-02] MEDS: ASPIRIN 81 MG ECTAB PO SCH (08:38)
[2017-03-02] MEDS: METOPROLOL SUCC 50MG EXT REL TAB PO SCH (08:38)
[2017-03-02] MEDS: AMIODARONE 200 MG TAB PO SCH (08:39)
[2017-03-02] MEDS: CITALOPRAM 20 MG TAB PO SCH (08:39)
[2017-03-02] MEDS: FUROSEMIDE 40 MG TAB PO SCH ×2 (08:39→17:49)
[2017-03-02] MEDS: CHOLECALCIFEROL 1000 INTER.UNIT TAB PO SCH (08:40)
[2017-03-02] MEDS: TIOTROPIUM BROMIDE 5 PUFF/90 MCG INH INH SCH (08:42)
[2017-03-02] MEDS: POTASSIUM CHLORIDE 10 MEQ TABCR PO SCH (08:42)
[2017-03-02] MEDS: INSULIN ASPART 100 UNITS/ML 3 ML PEN SC SCH ×4 (08:47→21:00)
[2017-03-02 08:52] LABS: CALCIUM 7.5 mg/dl (8.5-10.1)
[2017-03-02 08:58] LABS: BUN/CREATININE RATIO 15.5 (10-20); CREATININE 2.4 mg/dl (0.60-1.20); POTASSIUM 4.3 mmol/L (3.5-5.1)
[2017-03-02 15:04] VITALS: BP 130/67; PULSE 58; TEMP 37.1; O2SAT 96
--- NOTE | 2017-03-02 15:10 | Nephrology Progress Note ---
Nephrology Progress Note Date of Service: Mar 02, 2017. Subjective c/o flare of chronic nasal congestion; stable chronic wheezing; no voiding complaints or edema. pain controlled Objective Date Time Temp Pulse Resp B/P (MAP) Pulse Ox O2 Delivery O2 Flow Rate FiO2 03/02/17 07:55 96 Nasal Cannula 2.0 03/02/17 07:10 36.7 67 18 137/75 (95) 96 Nasal Cannula 2.0 03/01/17 23:50 Nasal Cannula 2.0 03/01/17 23:07 36.3 72 16 135/64 (87) 96 Nasal Cannula 2.0 03/01/17 16:04 Nasal Cannula 2.0 03/01/17 15:30 36.6 62 17 129/60 (83) 98 Nasal Cannula 2.0 Physical Exam: General Appearance: WD/WN, no apparent distress, + obese (on 02NC) Eyes: EOMI ENT: hearing grossly normal; some audible sinus congestion Neck: supple Respiratory/Chest: no respiratory distress, + decreased breath sounds, + wheezing (scattered insp/exp, fewer than yesterday) Cardiovascular: regular rate, rhythm Abdomen: normal bowel sounds, non tender, soft (no cash), + pertinent finding (L post spinal bandage/drain) Extremities: + pedal edema (minimal) Neurologic/Psych: alert, normal mood/affect, oriented x 3 Skin: no jaundice, warm/dry, no rash Current Inpatient Medications Medications (Trade) Dose Ordered Sig/Sanna Route Start Time Stop Time Status Last Admin Dose Admin Amiodarone HCl (Cordarone Tab) 200 mg DAILY PO 02/28/17 09:00 03/30/17 08:59 03/02/17 08:39 200 MG Amlodipine Besylate (Norvasc Tab) 10 mg QAM PO 02/28/17 09:00 03/30/17 08:59 03/02/17 08:38 10 MG Aspirin (Ecotrin Tab) 81 mg QAM PO 02/28/17 09:00 03/30/17 08:59 03/02/17 08:38 81 MG Citalopram Hydrobromide (celeXA TAB) 40 mg QAM PO 02/28/17 09:00 03/30/17 08:59 03/02/17 08:39 40 MG Isosorbide Mononitrate (Imdur Ext Rel Tab) 120 mg QAM PO 02/28/17 09:00 03/30/17 08:59 03/02/17 08:38 120 MG Metoprolol Succinate (Toprol Xl Tab) 50 mg QAM PO 02/28/17 09:00 03/30/17 08:59 03/02/17 08:38 50 MG Simvastatin (Zocor Tab) 10 mg QPM PO 02/27/17 21:00 03/29/17 20:59 03/01/17 21:11 10 MG Promethazine HCl 12.5 mg/Sodium Chloride 50.5 ml @ 202 mls/hr Q6H PRN IV 02/27/17 09:30 03/29/17 09:29 Ondansetron HCl (Zofran Inj) 4 mg Q6H PRN IV 02/27/17 09:30 03/29/17 09:29 Metoclopramide HCl (Reglan Inj) 10 mg Q6H PRN IV 02/27/17 09:30 03/29/17 09:29 Lorazepam (Ativan Tab) 0.5 mg Q8H PRN PO 02/27/17 09:30 03/29/17 09:29 Lorazepam 0.5 mg/ Syringe 1 ml @ 1 mls/min Q8H PRN IV 02/27/17 09:30 03/29/17 09:29 Polyethylene (Miralax Powder Packet) 17 gm Q6 PO 03/01/17 06:00 03/31/17 05:59 03/02/17 06:04 17 GM Bisacodyl (Dulcolax Supp) 10 mg DAILY PRN [place] 02/27/17 09:30 03/29/17 09:29 Magnesium Hydroxide (Milk Of Magnesia Susp) 30 ml DAILY PRN PO 02/27/17 09:30 03/29/17 09:29 Hydromorphone HCl (Dilaudid Inj) 0.5-1mg prn moder... Q3H PRN IV 02/27/17 09:30 03/13/17 09:29 Oxycodone HCl (Roxicodone Immediate Rel Tab) 5-10mg prn moderate to sev... Q4H PRN PO 02/27/17 11:27 03/13/17 11:26 03/01/17 17:05 10 MG Acetaminophen (Tylenol Tab) 1,000 mg Q8H PRN PO 02/27/17 09:30 03/29/17 09:29 03/02/17 08:37 1,000 MG Naloxone HCl (Narcan Inj) 0.1 mg Q5M PRN IV 02/27/17 09:30 03/29/17 09:29 Senna/Docusate Sodium (Senokot S Tab) 2 tab HS PO 02/27/17 21:00 03/29/17 20:59 03/01/17 21:11 2 TAB Sodium Biphosphate/ Sodium Phosphate (Fleet Enema) 132 ml ONE PRN MI 02/27/17 09:30 03/29/17 09:29 Al Hydroxide/Mg Hydroxide (Maalox Susp) 30 ml Q6H PRN PO 02/27/17 09:30 03/29/17 09:29 Famotidine (Pepcid Tab) 20 mg Q12 PRN PO 02/27/17 09:30 03/29/17 09:29 Insulin Aspart (novoLOG ASPART) SLIDING SCALE If C... ACHS SC 02/27/17 12:00 03/29/17 11:59 03/02/17 08:47 3 UNITS Glucose (Glucose 40% Gel) 15-30 GRAMS 15 GRAMS... UD PRN PO 02/27/17 11:30 03/29/17 11:29 Glucose (Glucose Chew Tab) 4-8 Tablets 4 Tabl... UD PRN PO 02/27/17 11:30 03/29/17 11:29 Dextrose (Dextrose 50% 50ML Syringe) 25-50ML OF 50% DW IV FOR... UD PRN IV 02/27/17 11:30 03/29/17 11:29 Glucagon (Glucagon Inj) 1 mg UD PRN SQ 02/27/17 11:30 03/29/17 11:29 Insulin Glargine (Lantus Solostar Pen) 15 unit HS SC 02/27/17 21:00 03/29/17 20:59 03/01/17 21:12 15 UNIT Furosemide (Lasix Tab) 40 mg BID17 PO 02/28/17 09:00 03/30/17 08:59 03/02/17 08:39 40 MG Cholecalciferol (Vitamin D Tab) 8,000 inter.unit DAILY PO 02/28/17 09:00 03/30/17 08:59 03/02/17 08:40 8,000 INTER.UNIT Potassium Chloride (Klor-Con M10) 20 meq DAILY PO 02/28/17 09:00 03/30/17 08:59 03/02/17 08:42 20 MEQ Alprazolam (Xanax Tab) 0.25 mg HS PRN PO 02/27/17 12:30 03/29/17 12:29 Albuterol (Ventolin Hfa Inhaler) 2 puffs Q6H PRN INH 02/27/17 12:30 03/29/17 12:29 Tiotropium [place] (Spiriva Handihaler Inhaler) 1 puff DAILY INH 02/28/17 09:00 03/30/17 08:59 03/02/17 08:42 1 PUFF Miscellaneous Information (Order Awaiting Action) 1 ea QS N/A 02/27/17 16:00 03/29/17 15:59 Albuterol Sulfate (Ventolin 0.5% 2.5MG/0.5ML Neb) 2.5 mg Q4 PRN INH 02/27/17 12:30 03/29/17 12:29 Last 24 Hours Test 03/01/17 11:47 03/01/17 12:01 03/01/17 12:06 03/01/17 16:57 Hemoglobin 9.0 g/dL Hematocrit 29.5 % Urine Color YELLOW Urine Appearance CLEAR Urine pH 5.0 Urine Specific [place] 1.015 Urine Protein NEG Urine Glucose (UA) NEG Urine Ketones NEG Urine Occult Blood NEG Urine Nitrite NEG Urine Bilirubin NEG Urine Urobilinogen NEG Urine Leukocyte Esterase NEG Urine WBC (Auto) 1-5 /hpf Urine RBC (Auto) 0-4 /hpf Urine Hyaline Casts (Auto) 1-5 /lpf Urine Epithelial Cells (Auto) >30 /lpf Urine Bacteria (Auto) NEG Urine Yeast (Auto) PRESENT Bedside Glucose 103 mg/dl 162 mg/dl Test 03/01/17 20:18 03/02/17 07:11 03/02/17 08:05 Bedside Glucose 114 mg/dl 122 mg/dl Sodium Level 139 mmol/L Potassium Level 4.3 mmol/L Chloride Level 103 mmol/L Carbon Dioxide Level 28 mmol/L Anion Gap 8.0 mmol/L Blood Urea Nitrogen 37 mg/dl Creatinine 2.40 mg/dl Est Creatinine Clear Calc Drug Dose 23.0 ml/min Estimated GFR () 21.5 Estimated GFR (Non- 18.6 BUN/Creatinine Ratio 15.5 Random Glucose 127 mg/dl Calcium Level 7.5 mg/dl Date/Time Source Procedure Growth Status 03/01/17 12:01 Urine , Clean Catch Urine Culture Pending Received Assessment & Plan 77 y/o F w/ CKD 4 baseline creatinine of 2 over the past 2 years but has in past had widely fluctuating values per outpt molder inflated ball, also w/ chronic DHF, DM, plm HTN, chronic bacteriuria/complex UTI s/p 02/27 lumbar spine decompression noted after procedure to have creatinine 2.6, peaked 03/01 2.7. Recently on bactrim then cipro for uti/positive urine cx. On outpt lasix dose. She had perioperative cefazolin in house but no other abtx. improving MADYSON on CKD 4 w/ widely variable baseline creatinine per outpt notes ( though 2017 values stable at 2.0 pretty much) in setting of chronic bacteriuria/ complicated UTI and chronic DHF/volume overload w/ pulm HTN. creat improving to 2.4 today -CXR reassuring for no overt vol OL -UACM w/o infection >> even if cx grows bacteria on reincubation there is no UTI and would not treat as UA is negative and she has no sx -strict I/O -daily bmp -cont lasix for now current dose -would let her take po fluid ad isabel but carefully track intake > needs at least 1.2 L fluid intake daily po or IV -maximize respiratory therapy for copd/bronchitis and for seasonal allergies -recommend bmp w/ f/u visit w/ PCP after hospital/rehab stay; provided that is stable w/ creatinine 2.0-2.4 she could be seen as planned for routine f/u of ckd4 w/ Dr. Vyas 08/2017 -cont current outpt lasix 40 mg bid at d/c Appreciate consult; will follow with you. Care coordinated w/ Dr. Cedeño
--- NOTE | 2017-03-02 15:24 | Consultant Recommendations ---
Office Nurse Recommendations Date of Service Mar 02, 2017. Office Nurse Recommendations Nephro D/C Recommendations -recommend bmp w/ f/u visit w/ PCP after hospital/rehab stay; provided that is stable w/ creatinine 2.0-2.4 she could be seen as planned for routine f/u of ckd4 w/ Dr. Vyas 08/2017 -cont current outpt lasix 40 mg bid at d/c
--- NOTE | 2017-03-02 20:22 | Progress Note ---
Medicine Progress Note Date & Time of Visit: Mar 02, 2017 at 11:00 . Subjective No fever. No chest pain. Wheezing improved. No dyspnea. Rare nonproductive cough. No nausea or vomiting. No BM. Voiding without difficulty. Postop pain well controlled. . Objective Last 8 Hrs Date Time Temp Pulse Resp B/P (MAP) Pulse Ox O2 Delivery O2 Flow Rate FiO2 03/02/17 15:35 Nasal Cannula 2.0 03/02/17 15:04 37.1 58 16 130/67 (88) 96 Nasal Cannula 2.0 Physical Exam: General- no distress Head- resolving ecchymosis forehead Neck- + JVD Lungs- diffuse mild wheezing, no respiratory distress Heart- regular, III/ systolic murmur at base Abdomen- bowel sounds, soft, nontender Extremities- trace pretibial edema; no calf tenderness Neuro- alert, oriented . Laboratory Results: Last 24 Hours Test 03/02/17 07:11 03/02/17 08:05 03/02/17 11:57 03/02/17 17:21 Sodium Level 139 mmol/L Potassium Level 4.3 mmol/L Chloride Level 103 mmol/L Carbon Dioxide Level 28 mmol/L Anion Gap 8.0 mmol/L Blood Urea Nitrogen 37 mg/dl Creatinine 2.40 mg/dl Est Creatinine Clear Calc Drug Dose 23.0 ml/min Estimated GFR () 21.5 Estimated GFR (Non- 18.6 BUN/Creatinine Ratio 15.5 Random Glucose 127 mg/dl Calcium Level 7.5 mg/dl Bedside Glucose 122 mg/dl 130 mg/dl 123 mg/dl Assessment & Plan S/P LUMBAR SURGERY - REMOVAL OF HARDWARE, DECOMPRESSION Doing well postoperatively. CKD / MADYSON Chronic kidney disease stage IV with baseline creatinine around 2. Creatinine 2.7 yesterday. Received IV NSS. Nephrology consulted. Serum creatinine today 2.4. Avoid NSAID's if possible as well as other potential nephrotoxins. ANEMIA Hgb 11.8 --> 9.4 --> 9.0. Acute blood loss anemia due to surgery. LEUKOCYTOSIS Probably secondary to dexamethasone. No apparent infection. CORONARY ARTERY DISEASE No anginal symptoms. Continue aspirin, metoprolol, amlodipine, nitrates, statin. CHRONIC DIASTOLIC CHF History of chronic left ventricular diastolic heart failure. Appears to be compensated. Continue furosemide. HISTORY PAROXYSMAL ATRIAL FIBRILLATION Continue amiodarone and metoprolol. Resume warfarin when OK from surgical perspective. HYPERTENSION Hemodynamically stable postoperatively. Continue metoprolol, amlodipine, nitrates. SLEEP APNEA Continue nocturnal O2. COPD Continue Spiriva + albuterol PRN. DIABETES MELLITUS TYPE 2 Fasting blood sugar this morning = 122. Lantus + NovoLog per protocol. VTE PROPHYLAXIS Per Ortho. Resume warfarin when OK from surgical perspective. Thank you for this consultation. We will follow the patient with you during their hospital stay. You can reach a member of the [facility] Hospitalist Team 09/04 via pager @ . You can reach me via cell @ [phone]. . Current Inpatient Medications: Current Inpatient Medications Medications (Trade) Dose Ordered Sig/Sanna Route Start Time Stop Time Status Last Admin Dose Admin Amiodarone HCl (Cordarone Tab) 200 mg DAILY PO 02/28/17 09:00 03/30/17 08:59 03/02/17 08:39 200 MG Amlodipine Besylate (Norvasc Tab) 10 mg QAM PO 02/28/17 09:00 03/30/17 08:59 03/02/17 08:38 10 MG Aspirin (Ecotrin Tab) 81 mg QAM PO 02/28/17 09:00 03/30/17 08:59 03/02/17 08:38 81 MG Citalopram Hydrobromide (celeXA TAB) 40 mg QAM PO 02/28/17 09:00 03/30/17 08:59 03/02/17 08:39 40 MG Isosorbide Mononitrate (Imdur Ext Rel Tab) 120 mg QAM PO 02/28/17 09:00 03/30/17 08:59 03/02/17 08:38 120 MG Metoprolol Succinate (Toprol Xl Tab) 50 mg QAM PO 02/28/17 09:00 03/30/17 08:59 03/02/17 08:38 50 MG Simvastatin (Zocor Tab) 10 mg QPM PO 02/27/17 21:00 03/29/17 20:59 03/01/17 21:11 10 MG Promethazine HCl 12.5 mg/Sodium Chloride 50.5 ml @ 202 mls/hr Q6H PRN IV 02/27/17 09:30 03/29/17 09:29 Ondansetron HCl (Zofran Inj) 4 mg Q6H PRN IV 02/27/17 09:30 03/29/17 09:29 Metoclopramide HCl (Reglan Inj) 10 mg Q6H PRN IV 02/27/17 09:30 03/29/17 09:29 Lorazepam (Ativan Tab) 0.5 mg Q8H PRN PO 02/27/17 09:30 03/29/17 09:29 Lorazepam 0.5 mg/ Syringe 1 ml @ 1 mls/min Q8H PRN IV 02/27/17 09:30 03/29/17 09:29 Polyethylene (Miralax Powder Packet) 17 gm Q6 PO 03/01/17 06:00 03/31/17 05:59 03/02/17 18:34 17 GM Bisacodyl (Dulcolax Supp) 10 mg DAILY PRN [place] 02/27/17 09:30 03/29/17 09:29 Magnesium Hydroxide (Milk Of Magnesia Susp) 30 ml DAILY PRN PO 02/27/17 09:30 03/29/17 09:29 Hydromorphone HCl (Dilaudid Inj) 0.5-1mg prn moder... Q3H PRN IV 02/27/17 09:30 03/13/17 09:29 Oxycodone HCl (Roxicodone Immediate Rel Tab) 5-10mg prn moderate to sev... Q4H PRN PO 02/27/17 11:27 03/13/17 11:26 03/01/17 17:05 10 MG Acetaminophen (Tylenol Tab) 1,000 mg Q8H PRN PO 02/27/17 09:30 03/29/17 09:29 03/02/17 08:37 1,000 MG Naloxone HCl (Narcan Inj) 0.1 mg Q5M PRN IV 02/27/17 09:30 03/29/17 09:29 Senna/Docusate Sodium (Senokot S Tab) 2 tab HS PO 02/27/17 21:00 03/29/17 20:59 03/01/17 21:11 2 TAB Sodium Biphosphate/ Sodium Phosphate (Fleet Enema) 132 ml ONE PRN SD 02/27/17 09:30 03/29/17 09:29 Al Hydroxide/Mg Hydroxide (Maalox Susp) 30 ml Q6H PRN PO 02/27/17 09:30 03/29/17 09:29 Famotidine (Pepcid Tab) 20 mg Q12 PRN PO 02/27/17 09:30 03/29/17 09:29 Insulin Aspart (novoLOG ASPART) SLIDING SCALE If C... ACHS SC 02/27/17 12:00 03/29/17 11:59 03/02/17 18:33 5 UNITS Glucose (Glucose 40% Gel) 15-30 GRAMS 15 GRAMS... UD PRN PO 02/27/17 11:30 03/29/17 11:29 Glucose (Glucose Chew Tab) 4-8 Tablets 4 Tabl... UD PRN PO 02/27/17 11:30 03/29/17 11:29 Dextrose (Dextrose 50% 50ML Syringe) 25-50ML OF 50% DW IV FOR... UD PRN IV 02/27/17 11:30 03/29/17 11:29 Glucagon (Glucagon Inj) 1 mg UD PRN SQ 02/27/17 11:30 03/29/17 11:29 Insulin Glargine (Lantus Solostar Pen) 15 unit HS SC 02/27/17 21:00 03/29/17 20:59 03/01/17 21:12 15 UNIT Furosemide (Lasix Tab) 40 mg BID17 PO 02/28/17 09:00 03/30/17 08:59 03/02/17 17:49 40 MG Cholecalciferol (Vitamin D Tab) 8,000 inter.unit DAILY PO 02/28/17 09:00 03/30/17 08:59 03/02/17 08:40 8,000 INTER.UNIT Potassium Chloride (Klor-Con M10) 20 meq DAILY PO 02/28/17 09:00 03/30/17 08:59 03/02/17 08:42 20 MEQ Alprazolam (Xanax Tab) 0.25 mg HS PRN PO 02/27/17 12:30 03/29/17 12:29 Albuterol (Ventolin Hfa Inhaler) 2 puffs Q6H PRN INH 02/27/17 12:30 03/29/17 12:29 Tiotropium [place] (Spiriva Handihaler Inhaler) 1 puff DAILY INH 02/28/17 09:00 03/30/17 08:59 03/02/17 08:42 1 PUFF Miscellaneous Information (Order Awaiting Action) 1 ea QS N/A 02/27/17 16:00 03/29/17 15:59 Albuterol Sulfate (Ventolin 0.5% 2.5MG/0.5ML Neb) 2.5 mg Q4 PRN INH 02/27/17 12:30 03/29/17 12:29
[2017-03-02] MEDS: INSULIN GLARGINE SOLOSTAR 100 UNITS/ML 3 ML PEN SC SCH (21:06)
[2017-03-02] MEDS: DOCUSATE SODIUM/SENNA 50/8.6MG TAB PO SCH (21:06)
[2017-03-02] MEDS: SIMVASTATIN 10 MG TAB PO SCH (21:06)
[2017-03-02 23:24] VITALS: BP 143/77; PULSE 67; TEMP 36.8; O2SAT 94
[2017-03-02] MEDS: OXYCODONE HCL IR 5 MG TAB (IMMEDIATE RELEASE) PO PRN (23:35)
[2017-03-03] MEDS: POLYETHYLENE (MIRALAX) 17 GM PACK PO SCH (05:51)
[2017-03-03 07:01] LABS: CREATININE 2.1 mg/dl (0.60-1.20)
[2017-03-03 07:15] VITALS: BP 156/73; PULSE 64; TEMP 36.8; O2SAT 96
[2017-03-03 08:03] VITALS: BP 156/73; PULSE 64; TEMP 36.8; O2SAT 96
--- NOTE | 2017-03-03 08:51 | Progress Note ---
Medicine Progress Note Date & Time of Visit: Mar 03, 2017 at 08:10 . Subjective Doing well postoperatively. No fever. No chest pain. Wheezing resolved. No cough or dyspnea. No nausea or vomiting. No BM yet. Voiding without difficulty. Postop pain well-controlled. . Objective Last 8 Hrs Date Time Temp Pulse Resp B/P (MAP) Pulse Ox O2 Delivery O2 Flow Rate FiO2 03/03/17 08:03 36.8 64 17 96 Nasal Cannula 03/03/17 07:15 36.8 64 17 156/73 (100) 96 Nasal Cannula 2.0 Physical Exam: General- sitting in chair; no distress Head- resolving ecchymosis forehead Neck- + JVD Lungs- clear Heart- regular, III/ systolic murmur at base Abdomen- bowel sounds, soft, nontender Extremities- 1+ pretibial edema; no calf tenderness; TEDS applied Neuro- alert, oriented . Laboratory Results: Last 24 Hours Test 03/02/17 11:57 03/02/17 17:21 03/02/17 20:32 03/03/17 05:43 Bedside Glucose 130 mg/dl 123 mg/dl 122 mg/dl Sodium Level 139 mmol/L Potassium Level 4.0 mmol/L Chloride Level 102 mmol/L Carbon Dioxide Level 29 mmol/L Anion Gap 8.0 mmol/L Blood Urea Nitrogen 38 mg/dl Creatinine 2.10 mg/dl Est Creatinine Clear Calc Drug Dose 26.3 ml/min Estimated GFR () 25.3 Estimated GFR (Non- 21.8 BUN/Creatinine Ratio 18.0 Random Glucose 82 mg/dl Calcium Level 8.0 mg/dl Test 03/03/17 08:18 Bedside Glucose 119 mg/dl Assessment & Plan S/P LUMBAR SURGERY - REMOVAL OF HARDWARE, DECOMPRESSION Doing well postoperatively. CKD / MADYSON Chronic kidney disease stage IV with baseline creatinine around 2. Creatinine as high as 2.7 postoperatively. Received IV NSS. Nephrology consulted. Serum creatinine today 2.1. Avoid NSAID's if possible as well as other potential nephrotoxins. ANEMIA Hgb 11.8 --> 9.4 --> 9.0. Acute blood loss anemia due to surgery. LEUKOCYTOSIS Probably secondary to dexamethasone. No apparent infection. CORONARY ARTERY DISEASE No anginal symptoms. Continue aspirin, metoprolol, amlodipine, nitrates, statin. CHRONIC DIASTOLIC CHF History of chronic left ventricular diastolic heart failure. Appears to be compensated. Continue furosemide. HISTORY PAROXYSMAL ATRIAL FIBRILLATION Continue amiodarone and metoprolol. Resume warfarin when OK from surgical perspective. HYPERTENSION Hemodynamically stable postoperatively. Continue metoprolol, amlodipine, nitrates. SLEEP APNEA Continue nocturnal O2. COPD Continue Spiriva + albuterol PRN. DIABETES MELLITUS TYPE 2 Fasting blood sugar this morning = 122. Lantus + NovoLog per protocol. VTE PROPHYLAXIS Per Ortho. Resume warfarin when OK from surgical perspective. Medically stable. OK for transfer to skilled care on usual meds. Thank you for this consultation. We will follow the patient with you during their hospital stay. You can reach a member of the [facility] Hospitalist Team 09/04 via pager @ . You can reach me via cell @ [phone]. . Current Inpatient Medications: Current Inpatient Medications Medications (Trade) Dose Ordered Sig/Sanna Route Start Time Stop Time Status Last Admin Dose Admin Amiodarone HCl (Cordarone Tab) 200 mg DAILY PO 02/28/17 09:00 03/30/17 08:59 03/02/17 08:39 200 MG Amlodipine Besylate (Norvasc Tab) 10 mg QAM PO 02/28/17 09:00 03/30/17 08:59 03/02/17 08:38 10 MG Aspirin (Ecotrin Tab) 81 mg QAM PO 02/28/17 09:00 03/30/17 08:59 03/02/17 08:38 81 MG Citalopram Hydrobromide (celeXA TAB) 40 mg QAM PO 02/28/17 09:00 03/30/17 08:59 03/02/17 08:39 40 MG Isosorbide Mononitrate (Imdur Ext Rel Tab) 120 mg QAM PO 02/28/17 09:00 03/30/17 08:59 03/02/17 08:38 120 MG Metoprolol Succinate (Toprol Xl Tab) 50 mg QAM PO 02/28/17 09:00 03/30/17 08:59 03/02/17 08:38 50 MG Simvastatin (Zocor Tab) 10 mg QPM PO 02/27/17 21:00 03/29/17 20:59 03/02/17 21:06 10 MG Promethazine HCl 12.5 mg/Sodium Chloride 50.5 ml @ 202 mls/hr Q6H PRN IV 02/27/17 09:30 03/29/17 09:29 Ondansetron HCl (Zofran Inj) 4 mg Q6H PRN IV 02/27/17 09:30 03/29/17 09:29 Metoclopramide HCl (Reglan Inj) 10 mg Q6H PRN IV 02/27/17 09:30 03/29/17 09:29 Lorazepam (Ativan Tab) 0.5 mg Q8H PRN PO 02/27/17 09:30 03/29/17 09:29 Lorazepam 0.5 mg/ Syringe 1 ml @ 1 mls/min Q8H PRN IV 02/27/17 09:30 03/29/17 09:29 Polyethylene (Miralax Powder Packet) 17 gm Q6 PO 03/01/17 06:00 03/31/17 05:59 03/03/17 05:51 17 GM Bisacodyl (Dulcolax Supp) 10 mg DAILY PRN ME 02/27/17 09:30 03/29/17 09:29 Magnesium Hydroxide (Milk Of Magnesia Susp) 30 ml DAILY PRN PO 02/27/17 09:30 03/29/17 09:29 Hydromorphone HCl (Dilaudid Inj) 0.5-1mg prn moder... Q3H PRN IV 02/27/17 09:30 03/13/17 09:29 Oxycodone HCl (Roxicodone Immediate Rel Tab) 5-10mg prn moderate to sev... Q4H PRN PO 02/27/17 11:27 03/13/17 11:26 03/02/17 23:35 10 MG Acetaminophen (Tylenol Tab) 1,000 mg Q8H PRN PO 02/27/17 09:30 03/29/17 09:29 03/02/17 08:37 1,000 MG Naloxone HCl (Narcan Inj) 0.1 mg Q5M PRN IV 02/27/17 09:30 03/29/17 09:29 Senna/Docusate Sodium (Senokot S Tab) 2 tab HS PO 02/27/17 21:00 03/29/17 20:59 03/02/17 21:06 2 TAB Sodium Biphosphate/ Sodium Phosphate (Fleet Enema) 132 ml ONE PRN ME 02/27/17 09:30 03/29/17 09:29 Al Hydroxide/Mg Hydroxide (Maalox Susp) 30 ml Q6H PRN PO 02/27/17 09:30 03/29/17 09:29 Famotidine (Pepcid Tab) 20 mg Q12 PRN PO 02/27/17 09:30 03/29/17 09:29 Insulin Aspart (novoLOG ASPART) SLIDING SCALE If C... ACHS SC 02/27/17 12:00 03/29/17 11:59 03/02/17 18:33 5 UNITS Glucose (Glucose 40% Gel) 15-30 GRAMS 15 GRAMS... UD PRN PO 02/27/17 11:30 03/29/17 11:29 Glucose (Glucose Chew Tab) 4-8 Tablets 4 Tabl... UD PRN PO 02/27/17 11:30 03/29/17 11:29 Dextrose (Dextrose 50% 50ML Syringe) 25-50ML OF 50% DW IV FOR... UD PRN IV 02/27/17 11:30 03/29/17 11:29 Glucagon (Glucagon Inj) 1 mg UD PRN SQ 02/27/17 11:30 03/29/17 11:29 Insulin Glargine (Lantus Solostar Pen) 15 unit HS SC 02/27/17 21:00 03/29/17 20:59 03/02/17 21:06 15 UNIT Furosemide (Lasix Tab) 40 mg BID17 PO 02/28/17 09:00 03/30/17 08:59 03/02/17 17:49 40 MG Cholecalciferol (Vitamin D Tab) 8,000 inter.unit DAILY PO 02/28/17 09:00 03/30/17 08:59 03/02/17 08:40 8,000 INTER.UNIT Potassium Chloride (Klor-Con M10) 20 meq DAILY PO 02/28/17 09:00 03/30/17 08:59 03/02/17 08:42 20 MEQ Alprazolam (Xanax Tab) 0.25 mg HS PRN PO 02/27/17 12:30 03/29/17 12:29 Albuterol (Ventolin Hfa Inhaler) 2 puffs Q6H PRN INH 02/27/17 12:30 03/29/17 12:29 Tiotropium [place] (Spiriva Handihaler Inhaler) 1 puff DAILY INH 02/28/17 09:00 03/30/17 08:59 03/02/17 08:42 1 PUFF Miscellaneous Information (Order Awaiting Action) 1 ea QS N/A 02/27/17 16:00 03/29/17 15:59 Albuterol Sulfate (Ventolin 0.5% 2.5MG/0.5ML Neb) 2.5 mg Q4 PRN INH 02/27/17 12:30 03/29/17 12:29
[2017-03-03] MEDS: TIOTROPIUM BROMIDE 5 PUFF/90 MCG INH INH SCH (09:00)
[2017-03-03] MEDS: FUROSEMIDE 40 MG TAB PO SCH (09:06)
[2017-03-03] MEDS: METOPROLOL SUCC 50MG EXT REL TAB PO SCH (09:07)
[2017-03-03] MEDS: AMLODIPINE BESYLATE 5 MG TAB PO SCH (09:07)
[2017-03-03] MEDS: ASPIRIN 81 MG ECTAB PO SCH (09:07)
[2017-03-03] MEDS: ISOSORBIDE MONONITRATE 60 MG TABCR PO SCH (09:08)
[2017-03-03] MEDS: CITALOPRAM 20 MG TAB PO SCH (09:08)
[2017-03-03] MEDS: POTASSIUM CHLORIDE 10 MEQ TABCR PO SCH (09:09)
[2017-03-03] MEDS: AMIODARONE 200 MG TAB PO SCH (09:09)
[2017-03-03] MEDS: CHOLECALCIFEROL 1000 INTER.UNIT TAB PO SCH (09:10)
[2017-03-03] MEDS: INSULIN ASPART 100 UNITS/ML 3 ML PEN SC SCH (09:16)
--- NOTE | 2017-03-06 10:10 | Discharge Summary ---
Orthopedic Discharge Summary Admission Date/Reason Feb 27, 2017 at 07:15 Lumbar Spinal Stenosis. Discharge Date/Disposition Mar 03, 2017 Rehab Diagnosis Principal Diagnosis: same Procedure(s) Performed lumbar decompression/fusion Consultations Nephrology Medicine Medication Reconciliation New Medications: Oxycodone HCl (Oxycodone HCl) 5 Mg Tab 5-10 MG PO Q4H PRN for Moderate - severe pain, #60 TAB Continued Medications: Acetaminophen (Acetaminophen ER) 650 Mg Tab 1 TAB PO Q4 for Pain Albuterol Hfa (Ventolin Hfa) 200 Puffs/52783 Mcg Aers 2 PUFFS INH Q6H PRN for SOB/Wheezing, #1 INHALER Albuterol Sulfate (Albuterol Sulfate) 0.63 Mg/3 Ml Neb 1 VIAL NEB Q4H PRN for Shortness of Breath for 12 Days, #150 ML 1 Refill Alprazolam (Xanax *) 0.25 Mg Tab 0.25 MG PO HS PRN for Anxiety, 0 Refills Amiodarone Hcl (Cordarone) 200 Mg Tab 200 MG PO DAILY, TAB Amlodipine (Norvasc) 10 Mg Tab 10 MG PO QAM, 0 Refills Aspirin Enteric Coated (Ecotrin Or Generic *) 81 Mg Ectab 81 MG PO QAM, 0 Refills pt reports received instructions for pre op - stopping on february 21 (this will be day of last dose) Cholecalciferol (Vitamin D) 1,000 Unit Tab 8000 UNITS PO DAILY Citalopram (Celexa *) 20 Mg Tab 40 MG PO QAM, 0 Refills Fluticasone-Salmeterol 115/21 Mcg (Advair Hfa 115/21 Mcg) 1 Aer Aer 1 PUFF INH BID, #1 AER Furosemide (Lasix) 40 Mg Tab 40 MG PO BID, 0 Refills Insulin Glargine (Toujeo Solostar) 300 Unit/Ml Inj 15 SQ HS Isosorbide Mononitrate Ext Rel (Imdur Ext Rel) 60 Mg Ertab 120 MG PO QAM, 0 Refills Metoprolol Succinate (Toprol Xl) 50 Mg Tab 50 MG PO QAM, #30 TAB Potassium Chloride (Potassium Chloride Er) 10 Meq Tab 2 TAB PO DAILY for 90 Days, #180 TAB 3 Refills Simvastatin (Zocor) 10 Mg Tab 10 MG PO DAILY, 0 Refills Tiotropium [place] (Spiriva Handihaler) 30 Puff/540 Mcg Aerp 1 CAP INH DAILY for 30 Days, #30 CAP 3 Refills Warfarin Sod (Coumadin) 2.5 Mg Tab 1.25 MG PO DAILY [lovenox] () SQ BID Admission Physical Exam As per Admitting History & Physical. Hospital Course The patient was admitted for elective lumbar surgery and tolerated the procedure without complication. They were transferred to the floor where they showed adequate pain control, mobility, and had return of bowel function. Her Cr elevated from baseline of 2.0, but returned with supportive care. Nephrology followed during her stay. They were discharged in stable condition. Discharge Instructions Please refer to the electronic Patient Visit Report (Discharge Instructions) for additional information.
== END 2017-03-03 11:01 | DRG 460 ==
LOC: C.ACU 05:21 → C.3E 07:15 → ENRESERV 10:04
PROVIDERS: ADMIT Orthopaedic Surgery Orthopaedic Surgery of the Spine; ATTEND Orthopaedic Surgery Orthopaedic Surgery of the Spine
PROC: 0SG0071 Fusion of Lumbar Vertebral Joint with Autologous Tissue Substitute, Posterior Approach, Posterior Column, Open Approach (ICD-10-PCS; principal; 2017-02-27 07:30)
PROC: 0SG30A1 (ICD-10-PCS; principal; 2017-02-27 07:30)
DX: M48.07 Spinal stenosis, lumbosacral region (principal); N18.4 Chronic kidney disease, stage 4 (severe); I50.32 Chronic diastolic (congestive) heart failure; I13.0 Hypertensive heart and chronic kidney disease with heart failure and stage 1 through stage 4 chronic kidney disease, or unspecified chronic kidney disease; N17.9 Acute kidney failure, unspecified; D62 Acute posthemorrhagic anemia; M54.17 Radiculopathy, lumbosacral region; D72.829 Elevated white blood cell count, unspecified; I73.9 Peripheral vascular disease, unspecified; D63.1 Anemia in chronic kidney disease; E78.5 Hyperlipidemia, unspecified; E11.22 Type 2 diabetes mellitus with diabetic chronic kidney disease; F17.200 Nicotine dependence, unspecified, uncomplicated; E11.42 Type 2 diabetes mellitus with diabetic polyneuropathy; I48.0 Paroxysmal atrial fibrillation; G47.33 Obstructive sleep apnea (adult) (pediatric); I25.10 Atherosclerotic heart disease of native coronary artery without angina pectoris; F32.9 Major depressive disorder, single episode, unspecified; F41.9 Anxiety disorder, unspecified; Z79.01 Long term (current) use of anticoagulants; Z79.82 Long term (current) use of aspirin; Z79.899 Other long term (current) drug therapy; Z98.1 Arthrodesis status